=== PATIENT | female | born 2000 | race Caucasian/White ===

== ENCOUNTER 2019-08-30 11:28 | Emergency (ER) | payer SELFPAY ==
[2019-08-30] MEDS ORDERED: predniSONE 20 MG TAB ONE (12:00)
--- NOTE | 2019-08-30 12:56 | EDPHYS ---
Physician Documentation [facility] Name: Nan Stoddard Age: 18 yrs Sex: Female : 2000 Arrival Date: 08/30/2019 Time: 11:31 Bed 23 Private MD: Unknown, Unknown ED Physician Maninder Valero HPI: 08/30 16:29 This 18 yrs old Female presents to ER via Ambulatory with complaints of Neck kdr Swelling, Breathing Difficulty. 16:29 The patient or guardian reports difficulty breathing, Sore throat. Onset: The kdr symptoms/episode began/occurred gradually, 3 day(s) ago. Modifying factors: The symptoms are alleviated by nothing. the symptoms are aggravated by Solid and liquids. Associated signs and symptoms: Pertinent positives: sore throat, Lateral neck pain, this patient has no pertinent positive symptoms Pertinent negatives: chest pain, diarrhea, ear ache, fever, nausea. Severity of symptoms: At their worst the symptoms were mild in the emergency department the symptoms are unchanged. The patient has not experienced similar symptoms in the past. The patient has not recently seen a physician. Historical: - Allergies: 11:44 PENICILLINS; hb - Home Meds: 11:44 None [Active]; hb - PMHx: 11:44 None; hb - PSHx: 11:44 None; hb - Immunization history:: Adult Immunizations up to date. - Social history:: Smoking status: Patient uses tobacco products, smokes one-half pack cigarettes per day. - Ebola Screening: : No symptoms or risks identified at this time. ROS: 16:29 Constitutional: Negative for fever, chills, and weight loss, Eyes: Negative for injury, kdr pain, redness, and discharge, Neck: Negative for injury, pain, and swelling, Cardiovascular: Negative for chest pain, palpitations, and edema, Abdomen/GI: Negative for abdominal pain, nausea, vomiting, diarrhea, and constipation, Back: Negative for injury and pain, : Negative for injury, bleeding, discharge, and swelling, MS/Extremity: Negative for injury and deformity, Skin: Negative for injury, rash, and discoloration, Neuro: Negative for headache, weakness, numbness, tingling, and seizure activity. Psych: Negative for depression, anxiety, suicide ideation, homicidal ideation, and hallucinations, Allergy/Immunology: Negative for hives, rash, and allergies, Endocrine: Negative for neck swelling, polydipsia, polyuria, polyphagia, and marked weight changes, Hematologic/Lymphatic: Negative for swollen nodes, abnormal bleeding, and unusual bruising. 16:29 Neck: Positive for pain with movement, Neck s/s are very minimal. 16:29 Respiratory: Positive for Sore throat and lateral neck pain. Exam: 16:29 Constitutional: This is a well developed, well nourished patient who is awake, alert, kdr and in no acute distress. Head/Face: Normocephalic, atraumatic. Eyes: Pupils equal round and reactive to light, extra-ocular motions intact. Lids and lashes normal. Conjunctiva and sclera are non-icteric and not injected. Cornea within normal limits. Periorbital areas with no swelling, redness, or edema. ENT: Nares patent. No nasal discharge, no septal abnormalities noted. Tympanic membranes are normal and external auditory canals are clear. Oropharynx with no redness, swelling, or masses, exudates, or evidence of obstruction, uvula midline. Mucous membranes moist. Neck: Trachea midline, no thyromegaly or masses palpated, and no cervical lymphadenopathy. Supple, full range of motion without nuchal rigidity, or vertebral point tenderness. No Meningismus. Chest/axilla: Normal chest wall appearance and motion. Nontender with no deformity. No lesions are appreciated. Cardiovascular: Regular rate and rhythm with a normal S1 and S2. No gallops, murmurs, or rubs. Normal PMI, no JVD. No pulse deficits. Respiratory: Lungs have equal breath sounds bilaterally, clear to auscultation and percussion. No rales, rhonchi or wheezes noted. No increased work of breathing, no retractions or nasal flaring. Abdomen/GI: Soft, non-tender, with normal bowel sounds. No distension or tympany. No guarding or rebound. No evidence of tenderness throughout. Back: No spinal tenderness. No costovertebral tenderness. Full range of motion. Skin: Warm, dry with normal turgor. Normal color with no rashes, no lesions, and no evidence of cellulitis. MS/ Extremity: Pulses equal, no cyanosis. Neurovascular intact. Full, normal range of motion. Neuro: Awake and alert, GCS 15, oriented to person, place, time, and situation. Cranial nerves II-XII grossly intact. Motor strength 5/5 in all extremities. Sensory grossly intact. Cerebellar exam normal. Normal gait. Psych: Awake, alert, with orientation to person, place and time. Behavior, mood, and affect are within normal limits. Vital Signs: 11:43 BP 134 / 83; Pulse 114; Resp 16; Temp 98.9; Pulse Ox 100% on R/A; Weight 52.16 kg; hb Height 5 ft. 7 in. (170.18 cm); Pain 6/10; 12:36 BP 127 / 78; Pulse 89; Resp 16; Pulse Ox 98% on R/A; la1 11:43 Body Mass Index 18.01 (52.16 kg, 170.18 cm) hb MDM: 12:55 Patient medically screened. kdr 16:32 Data reviewed: vital signs, nurses notes, lab test result(s). Counseling: I had a kdr detailed discussion with the patient and/or guardian regarding: the historical points, exam findings, and any diagnostic results supporting the discharge/admit diagnosis, lab results, radiology results, the need for outpatient follow up. 08/30 11:59 Order name: Flu; Complete Time: 12:54 kdr 08/30 11:59 Order name: Strep; Complete Time: 12:54 kdr 08/30 12:24 Order name: Throat Culture EDMS Administered Medications: 12:06 Drug: predniSONE 40 mg Route: PO; la1 13:05 Follow up: Response: No adverse reaction la1 Disposition: 08/30/19 12:55 Discharged to Home. Impression: Acute pharyngitis due to other specified organisms, Acute pharyngitis, unspecified. - Condition is Stable. - Discharge Instructions: Pharyngitis, Sore Throat, Upper Respiratory Infection, Pediatric, Viral Respiratory Infection. - Prescriptions for Prednisone 20 mg Oral Tablet - take 2 tablets by ORAL route once daily for 3 days; 6 tablet. - Medication Reconciliation Form, Thank You Letter form. - Follow up: Private Physician; When: 2 - 3 days; Reason: If symptoms return, Further diagnostic work-up, Recheck today's complaints, Continuance of care, Re-evaluation by your physician. - Problem is new. - Symptoms have improved. Signatures: Dispatcher [employer] EDMS Maninder Valero MD MD kdr Viral Ely RN RN la1 Bea Gardner RN RN Corrections: (The following items were deleted from the chart) 13:05 12:55 08/30/2019 12:55 Discharged to Home. Impression: Acute pharyngitis due to other la1 specified organisms; Acute pharyngitis, unspecified. Condition is Stable. Forms are Medication Reconciliation Form, Thank You Letter, Antibiotic Education, Prescription Opioid Use. Follow up: Private Physician; When: 2 - 3 days; Reason: If symptoms return, Further diagnostic work-up, Recheck today's complaints, Continuance of care, Re-evaluation by your physician. Problem is new. Symptoms have improved. kdr
--- NOTE | 2019-08-30 12:56 | ER ---
Nurse's Notes [facility] Name: Nan Stoddard Age: 18 yrs Sex: Female : 2000 Arrival Date: 08/30/2019 Time: 11:31 Bed 23 Private MD: Unknown, Unknown Diagnosis: Acute pharyngitis due to other specified organisms;Acute pharyngitis, unspecified Presentation: 08/30 11:42 Presenting complaint: Sore throat x 2-3 days, neck stiffness and SOB today. Transition hb of care: patient was not received from another setting of care. Onset of symptoms was August 28, 2019. Risk Assessment: Do you want to hurt yourself or someone else? Patient reports no desire to harm self or others. Care prior to arrival: Medication(s) given: Motrin, at 1030. 11:42 Method Of Arrival: Ambulatory hb 11:42 Acuity: DARIEN 3 hb 11:48 Initial Sepsis Screen: Does the patient meet any 2 criteria? HR > 90 bpm. No. Patient's la1 initial sepsis screen is negative. Does the patient have a suspected source of infection? No. Patient's initial sepsis screen is negative. Historical: - Allergies: 11:44 PENICILLINS; hb - Home Meds: 11:44 None [Active]; hb - PMHx: 11:44 None; hb - PSHx: 11:44 None; hb - Immunization history:: Adult Immunizations up to date. - Social history:: Smoking status: Patient uses tobacco products, smokes one-half pack cigarettes per day. - Ebola Screening: : No symptoms or risks identified at this time. Screenin:52 Abuse screen: Denies threats or abuse. Nutritional screening: No deficits noted. la1 Tuberculosis screening: No symptoms or risk factors identified. Fall Risk None identified. Assessment: 11:51 General: Appears in no apparent distress. Behavior is calm, cooperative. Pain: la1 Complains of pain in sore throat. Neuro: Level of Consciousness is awake, alert, obeys commands, Oriented to person, place, time, situation. Cardiovascular: Capillary refill < 3 seconds Patient's skin is warm and dry. Respiratory: Airway is patent Respiratory effort is even, unlabored, Respiratory pattern is regular, symmetrical, Breath sounds are clear bilaterally. GI: No signs and/or symptoms were reported involving the gastrointestinal system. : No signs and/or symptoms were reported regarding the genitourinary system. EENT: Oral mucosa is moist. Good dentition noted. Throat is reddened has patchy exudate. Musculoskeletal: Circulation, motion, and sensation intact. Capillary refill < 3 seconds, Neck is supple. 12:36 Reassessment: Patient appears in no apparent distress at this time. No changes from la1 previously documented assessment. Patient and/or family updated on plan of care and expected duration. Pain level reassessed. Patient is alert, oriented x 3, equal unlabored respirations, skin warm/dry/pink. Vital Signs: 11:43 BP 134 / 83; Pulse 114; Resp 16; Temp 98.9; Pulse Ox 100% on R/A; Weight 52.16 kg; hb Height 5 ft. 7 in. (170.18 cm); Pain 6/10; 12:36 BP 127 / 78; Pulse 89; Resp 16; Pulse Ox 98% on R/A; la1 11:43 Body Mass Index 18.01 (52.16 kg, 170.18 cm) hb ED Course: 11:31 Patient arrived in ED. as 11:31 Unknown, Unknown is Private Physician. as 11:43 Triage completed. hb 11:43 Arm band placed on. hb 11:48 Viral Ely RN is Primary Nurse. la1 11:49 Maninder Valero MD is Attending Physician. kdr 11:52 Patient has correct armband on for positive identification. la1 13:04 No provider procedures requiring assistance completed. Patient did not have IV access la1 during this emergency room visit. Administered Medications: 12:06 Drug: predniSONE 40 mg Route: PO; la1 13:05 Follow up: Response: No adverse reaction la1 Outcome: 12:55 Discharge ordered by . kdr 13:05 Discharged to home ambulatory. la1 13:05 Condition: stable 13:05 Discharge instructions given to patient, Instructed on discharge instructions, follow up and referral plans. medication usage, Demonstrated understanding of instructions, follow-up care, medications, Prescriptions given X 1. 13:05 Patient left the ED. la1 Signatures: Maninder Valero MD MD kdr Cindy Strong as Viral Ely RN RN la1 Bea Gardner RN RN Corrections: (The following items were deleted from the chart) 11:44 11:42 Care prior to arrival: None. hb hb
[2019-08-30 13:13] VITALS: TEMP 98.9
[2019-08-30 13:14] VITALS: BP 127/78; O2SAT 98
== END 2019-08-30 13:05 | disposition home or self-care (01) ==
LOC: ER 11:28
DX: J02.8 Acute pharyngitis due to other specified organisms (principal); F17.210 Nicotine dependence, cigarettes, uncomplicated; Z88.0 Allergy status to penicillin
CPT/HCPCS: 87070; 87081; 87804; 99283; J7512

== ENCOUNTER 2023-04-09 07:48 | Emergency (ER) | payer SELFPAY ==
--- OUTSIDE RECORDS SUMMARY | 2023-04-09 07:51 | XMS REPORT | Continuity of Care Document ---
:2000 Author Organization [facility] t Address [address] [place] [address] [place] [id number] Care Team Providers Name Role Phone PCP, PATIENT DOES NOT HAVE A Primary Care Physician Unavaila mp Segal BIT SHAVER, Jignesh Attending Clinician JIGNESH SEGAL Attending Clinician Unavailable Doctor Unassigned, Anselmo Attending Clinician Unavailable Problems Condition Condition Condition Status Onset Resolution Last Treating Co mments Source Name Details Category Date Date Treatment Clinician Date Routine Routine Disease Active [facility] gynecologi gynecologi 816 it y of [place] valentino 00:00: [place] examinatio examinatio 00 Me dical n n Branch Cervical Cervical Disease Active Unive rs cancer cancer 816 ity of [place] [facility] Incomplete Incomplete Disease Active U nivers rectal rectal 16 ity of prolapse prolapse 00:00: [place] 00 [facility] Need for Need for Disease Active Unive rs vaccinatio vaccinatio 16 it y of n n 00:00: [address] Branch History of History of Disease Active U nivers chronic chronic 8-16 [place] [facility] Allergies, Adverse Reactions, Alerts Allergy Allergy Status Severity Reaction(s) Onset Inactive Treating Comm ents Source Name Type Date Date Clinician NO KNOWN Drug Active Univers ALLERGIE Class ity of S [facility] Social History Social Habit Start Date Stop Date Quantity Comments Source Exposure to 2022-06-13 2022-06-23 Not sure [facility] SARS-CoV-2 00:00:00 09:43:00 [facility] (event) [place] Tobacco use and 2022-06-23 2022-06-23 Smokeless tobacco Un iversity of exposure 00:00:00 00:00:00 non-user [facility] Sex Assigned At [birth year] Universit y of 00:00:00 00:00:00 [facility] Smoking Status Start Date Stop Date Source Never smoked tobacco [facility] Medications Ordered Filled Start Stop Current Ordering Indication Dosage Frequency Signature Comments Components Source Medication Medication Date Date Medication? Clinician (SIG) Name Name No known No No known Unive rs medications 8-16 medication it y of 11:00: s [address] Vital Signs Vital Name Observation Time Observation Value Comments Source Systolic blood 2022-06-23 14:56:00 121 mm[Hg] Univer sity of pressure [facility] Diastolic blood 2022-06-23 14:56:00 86 mm[Hg] Unive rsity of pressure [facility] Heart rate 2022-06-23 14:56:00 87 /min [facility] Respiratory rate 2022-06-23 14:56:00 18 /min [facility] Body height 2022-06-23 14:56:00 170.2 cm [facility] Body weight 2022-06-23 14:56:00 60.782 kg [facility] BMI 2022-06-23 14:56:00 20.99 kg/m2 [facility] Oxygen saturation in 2022-06-23 14:56:00 100 /min [facility] Arterial blood by [facility] Pulse oximetry Branch Procedures This patient has no known procedures. Encounters Start End Encounter Admission Attending Care Care Encounter Source Date/Time Date/Time Type Type Clinicians Facility Department ID 2022-06-23 2022-06-23 Office ALMAS Segal [id number] [facility] 09:30:00 10:34:49 Visit Jignesh ALEK [id number] it y of WOMEN'S [id number] [facility] [employer] [id number] [facility] CLIN[facility] [address] Branch 2022-06-23 2022-06-23 Outpatient R JIGNESH SEGAL [facility] [id number] Univers 09:30:00 10:34:49 EMILYJIGNESH SINHA [facility] 2022-06-23 2022-06-23 Outpatient R JIGNESH SEGAL [facility] [id number] [facility] 09:30:00 10:34:49 NOÉJIGNESH HERRERA akilah [facility] 2022-06-23 2022-06-23 Outpatient R JIGNESH SEGAL [facility] [id number] [facility] 09:30:00 10:34:49 EMILYJIGNESH SINHA [facility] 2022-06-23 2022-06-23 Orders Doctor BRYON [id number] Univers 00:00:00 00:00:00 Only Unassigned, JOSSIE [id number] ity of [place]selmo [facility] [id number] Zay as [id number] [place] [address] Branch Results This patient has no known results.
[2023-04-09 08:40] LABS: Absolute Lymphocytes (CBC) 2.1 K/uL (0.7-4.9); Hematocrit 41.7 % (36.0-45.0); Lymphocytes % 23.4 % (15.3-44.8); MCV 90.8 fL (80-100); MPV 10.7 fL (7.6-11.3); RBC Red Blood Cell Count 4.59 M/uL (3.86-4.86)
[2023-04-09 08:56] LABS: Potassium 3.9 mEq/L (3.5-5.1)
--- NOTE | 2023-04-09 10:17 | RAD REPORT ---
EXAM DESCRIPTION: US - Transvaginal OB - 04/09/2023 10:03 am CLINICAL HISTORY: with vaginal bleeding COMPARISON: None. FINDINGS: The uterus measures 7 x 3 x 5 centimeters. The endometrial stripe measures 4 millimeters. A gestational sac is not seen. Ovaries are normal in size and echotexture.. 3.1 centimeter with cyst containing a septation is prese nt within the left adnexal. The right at adnexa unremarkable No significant free fluid IMPRESSION: Nonvisualization of a gestational sac within the endometrium. These findings could represent an early intrauterine in which the gestational sac is not se en. and even an ectopic can also result in this appearance. This all should be cor related clinically and with serial beta HCG levels. Followup endovaginal sonogram in 1 week recommend ed 3.1 centimeter left adnexal cyst containing a septation
[2023-04-09 10:26] LABS: Specific Gravity 1.008 (1.005-1.030)
[2023-04-09 10:31] LABS: Specific Gravity 1.008 (1.005-1.030); Urine Bacteria None Seen /HPF (<20); Urine Bilirubin NEGATIVE (Negative); Urine Blood 2+ (Negative); Urine Clarity Clear (Clear); Urine Color Colorless (Yellow); Urine Glucose NEGATIVE (Negative); Urine Mucus Slight /HPF (None Seen); Urine Protein NEGATIVE (Negative); Urine RBC <5 /HPF (None Seen); Urine Urobilinogen Normal (Normal); Urine pH 5.5 (5.0-7.0)
--- NOTE | 2023-04-09 10:39 | ER ---
Nurse's Notes [facility] Name: Nan Stoddard Age: 22 yrs Sex: Female : 2000 Arrival Date: 04/09/2023 Time: 07:48 Bed 14 Private MD: Diagnosis: Threatened Presentation: 04/09 07:59 Chief complaint: Bright red vaginal bleeding upon waking today, reports she is approx 5 hb weeks , has not seen OB yet. Coronavirus screen: At this time, the client does not indicate any symptoms associated with coronavirus-19. Ebola Screen: No symptoms or risks identified at this time. Initial Sepsis Screen: Does the patient meet any 2 criteria? No. Patient's initial sepsis screen is negative. Does the patient have a suspected source of infection? No. Patient's initial sepsis screen is negative. Risk Assessment: Do you want to hurt yourself or someone else? Patient reports no desire to harm self or others. Onset of symptoms was April 09, 2023. 07:59 Method Of Arrival: Ambulatory hb 07:59 Acuity: DARIEN 3 hb CLAIMS EXAMINER: 09:19 LMP 03/05/2023 nj1 Historical: - Allergies: 08:01 PENICILLINS; hb - Home Meds: 08:01 None [Active]; hb - PMHx: 08:01 Hypertensive disorder; hb - PSHx: 08:01 None; hb - Immunization history:: Adult Immunizations up to date. - Social history:: Smoking status: Patient/guardian denies using tobacco, Stopped _ months ago 1. Screenin:16 [facility] ED Fall Risk Assessment (Adult) History of falling in the last 3 months, ss including since admission No falls in past 3 months (0 pts). Abuse screen: Denies threats or abuse. Denies injuries from another. Nutritional screening: No deficits noted. Tuberculosis screening: Never had TB. Assessment: 08:03 General: Appears in no apparent distress. comfortable, Behavior is calm, cooperative. ss Pain: Complains of pain in abdomen Pain currently is 5 out of 10 on a pain scale. Quality of pain is described as crampy, Pain began this morning Is continuous. Neuro: Level of Consciousness is awake, alert. Respiratory: Airway is patent Respiratory effort is even, unlabored, Respiratory pattern is regular, symmetrical. GI:. : Reports vaginal bleeding that is moderate flow. Derm: Skin is pink, warm \T\ dry. normal. Musculoskeletal: Swelling absent. 08:13 Reassessment: Pt ambulated to restroom with steady gait to provide urine specimen. ss 08:29 Reassessment: Pt unable to provide urine sample at this time. Call light within reach. ss IV in place. Labs sent to laboratory, awaiting results. 09:10 Reassessment: Reassessment: Tiana CASTANON aware of blood pressure readings per preceding nj1 nurse report (Caty Dennis RN). 10:10 Reassessment: Patient appears in no apparent distress at this time. Patient and/or nj1 family updated on plan of care and expected duration. Pain level reassessed. Patient is alert, oriented x 3, equal unlabored respirations, skin warm/dry/pink. 10:47 Reassessment: Patient appears in no apparent distress at this time. Patient is alert, nj1 oriented x 3, equal unlabored respirations, skin warm/dry/pink. Vital Signs: 07:59 BP 146 / 111; Pulse 75; Resp 16; Temp 98.7(O); Pulse Ox 100% on R/A; Weight 53.07 kg; hb Height 5 ft. 7 in. ; Pain 5/10; 10:10 BP 126 / 87; Pulse 68; Resp 16; Pulse Ox 100% on R/A; nj1 07:59 Body Mass Index 18.32 (53.07 kg, 170.18 cm) hb 07:59 Pain Scale: Adult hb ED Course: 07:50 Patient arrived in ED. rg4 08:01 Triage completed. hb 08:01 Robert Urbina PA is PHCP. [facility] 08:01 Juan Viera MD is Attending Physician. jm 08:01 Arm band placed on. hb 08:03 Patient has correct armband on for positive identification. ss 08:13 Caty Brar, IMMANUEL is Primary Nurse. ss 08:29 Abo/rh Typing Sent. ss 08:29 Basic Metabolic Panel Sent. ss 08:29 CBC with Diff Sent. ss 08:29 Inserted saline lock: 22 gauge in right antecubital area, using aseptic technique. ss Blood collected. 09:00 Report given to IMMANUEL Wallace. ss 10:47 No provider procedures requiring assistance completed. IV discontinued, intact, nj1 bleeding controlled. Administered Medications: No medications were administered Medication: 08:03 VIS not applicable for this client. Outcome: 10:39 Discharge ordered by . cande 10:48 Discharged to home ambulatory. nj1 10:48 Condition: stable 10:48 Discharge instructions given to patient, Instructed on discharge instructions, follow up and referral plans. Demonstrated understanding of instructions, follow-up care. 10:49 Patient left the ED. nj1 Signatures: Dispatcher [employer] EDMS Robert Urbina PA PA jmm Smirch, Shelby, RN RN Bea Gardner RN RN hb Garcia, Rubi rg4 Madison Dowling RN RN nj1 Corrections: (The following items were deleted from the chart) 09:18 09:14 BP 131 / 111; Pulse 47bpm; Pulse Ox 100% RA; nj1 nj1 10:03 10:02 In radiology for 1st Trimest Single 1st Fetus+US.RAD.BRZ. EDMS EDMS
--- NOTE | 2023-04-09 10:40 | EDPHYS ---
Physician Documentation [facility] Name: Nan Stoddard Age: 22 yrs Sex: Female : 2000 Arrival Date: 04/09/2023 Time: 07:48 Bed 14 Private MD: ED Physician Juan Viera HPI: 04/09 08:02 This 22 yrs old Female presents to ER via Ambulatory with complaints of Vaginal jmm Bleeding, + Preg <12wks. 08:02 Is a 22-year-old female with history of hypertension the presents emerged department jm with complaints of vaginal bleeding beginning earlier today. Also having some pelvic cramping. Patient is G1, P0. Currently has no care.. 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 - Social history:: Smoking status: Patient/guardian denies using tobacco, Stopped _ months ago 1. ROS: 08:02 Constitutional: Negative for fever, chills, and weight loss, Cardiovascular: Negative jmm for chest pain, palpitations, and edema, Respiratory: Negative for shortness of breath, cough, wheezing, and pleuritic chest pain. 08:02 : Positive for vaginal bleeding. 08:02 All other systems are negative. Exam: 08:02 Constitutional: This is a well developed, well nourished patient who is awake, alert, jmm and in no acute distress. Head/Face: atraumatic. Eyes: EOMI, no conjunctival erythema appreciated ENT: Moist Mucus Membranes Neck: Trachea midline, Supple Chest/axilla: Normal chest wall appearance and motion. Cardiovascular: Regular rate and rhythm. No edema appreciated Respiratory: Normal respirations, no respiratory distress appreciated Abdomen/GI: Non distended Back: Normal ROM Skin: General appearance color normal 08:02 Musculoskeletal/extremity: ROM: intact in all extremities. 08:02 Skin: Appearance: Color: normal in color. 08:02 Neuro: Orientation: is normal, Mentation: is normal, Memory: is normal. 08:02 Psych: Behavior/mood is pleasant, cooperative. Vital Signs: 07:59 BP 146 / 111; Pulse 75; Resp 16; Temp 98.7(O); Pulse Ox 100% on R/A; Weight 53.07 kg; hb Height 5 ft. 7 in. ; Pain 5/10; 10:10 BP 126 / 87; Pulse 68; Resp 16; Pulse Ox 100% on R/A; nj1 07:59 Body Mass Index 18.32 (53.07 kg, 170.18 cm) hb 07:59 Pain Scale: Adult hb MDM: 08:02 Patient medically screened. [facility] 12:33 Differential diagnosis: Threatened , complete , dysfunctional uterine [facility] bleeding. Data reviewed: vital signs, nurses notes, lab test result(s), radiologic studies, ultrasound. Counseling: I had a detailed discussion with the patient and/or guardian regarding: the historical points, exam findings, and any diagnostic results supporting the discharge/admit diagnosis, lab results, radiology results, the need for outpatient follow up, to return to the emergency department if symptoms worsen or persist or if there are any questions or concerns that arise at home. 04/09 08:02 Order name: Abo/rh Typing; Complete Time: 09:00 [facility] 04/09 08:02 Order name: Basic Metabolic Panel; Complete Time: 08:57 [facility] 04/09 08:02 Order name: CBC with Diff; Complete Time: 08:46 [facility] 04/09 08:02 Order name: Test, Urine; Complete Time: 10:33 [facility] 04/09 08:02 Order name: Quantitative Hcg; Complete Time: 08:57 [facility] 04/09 08:02 Order name: Urinalysis w/ reflexes; Complete Time: 10:33 [facility] 04/09 10:05 Order name: Transvaginal OB; Complete Time: 10:27 [facility] 04/09 08:02 Order name: IV Saline Lock; Complete Time: 08:28 [facility] 04/09 08:02 Order name: Labs collected and sent; Complete Time: 08:28 [facility] 04/09 08:02 Order name: NPO; Complete Time: 08:28 [facility] Administered Medications: No medications were administered Disposition: 13:56 Co-signature as Attending Physician, Juan Viera MD I reviewed the patient's care rt provided by the Advanced Practice Provider and agree with the diagnosis and treatment plan. Disposition Summary: 04/09/23 10:39 Discharge Ordered Location: Home [facility] Condition: Stable jm Diagnosis - Threatened jm Followup: jmza - With: Private Physician - When: 2 - 3 days - Reason: Recheck today's complaints, Continuance of care, Repeat Beta-HCG (48 Hours), Re-evaluation by your physician Discharge Instructions: - Discharge Summary Sheet jmm - Threatened Miscarriage jm Forms: - Medication Reconciliation Form [facility] - Thank You Letter [facility] - Antibiotic Education [facility] - Prescription Opioid Use [facility] Signatures: Dispatcher [employer] EDMS Robert Urbina PA PA jmm Baxter, Heather, RN RN Juan Viera MD MD rt Corrections: (The following items were deleted from the chart) 10:03 09:00 1st Trimest Single 1st Fetus+US.RAD.BRZ ordered. EDMS EDMS
[2023-04-09 11:13] VITALS: TEMP 98.7; O2SAT 100
[2023-04-09 11:19] VITALS: BP 126/87
== END 2023-04-09 10:49 | disposition home or self-care (01) ==
LOC: ER 07:48
DX: O20.0 Threatened abortion (principal)
CPT/HCPCS: 36415; 76817; 80048; 81001; 81025; 84702; 85025; 86900; 86901; 99283

== ENCOUNTER 2023-04-11 09:01 | Emergency (ER) | payer SELFPAY ==
--- OUTSIDE RECORDS SUMMARY | 2023-04-11 09:06 | XMS REPORT | Continuity of Care Document ---
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, Jignesh Attending Clinician JIGNESH SEGAL Attending Clinician Unavailable Doctor Unassigned, [place] Attending Clinician Unavailable Problems Condition Condition Condition Status Onset Resolution Last Treating Co mments Source Name Details Category Date Date Treatment Clinician Date Routine Routine Disease Active Univers gynecologi gynecologi 816 it y of valentino valentino 00:00: [place] examinatio examinatio 00 Me dical n n Branch Cervical Cervical Disease Active Unive rs cancer cancer 816 ity of [place] [facility] [place] Incomplete Incomplete Disease Active U nivers rectal rectal 16 ity of prolapse prolapse 00:00: [place] 00 Medical Branch Need for Need for Disease Active Unive rs vaccinatio vaccinatio 16 it y of n n 00:00: [address] Branch History of History of Disease Active U nivers chronic chronic 8-16 [place] of const[place] Allergies, Adverse Reactions, Alerts Allergy Allergy Status Severity Reaction(s) Onset Inactive Treating Comm ents Source Name Type Date Date Clinician NO KNOWN Drug Active Univers ALLERGIE Class ity of S [facility] Social History Social Habit Start Date Stop Date Quantity Comments Source Exposure to 2022-06-13 2022-06-23 Not sure [facility] SARS-CoV-2 00:00:00 09:43:00 [facility] (event) [place] Tobacco use and 2022-06-23 2022-06-23 Smokeless tobacco Un iversity of exposure 00:00:00 00:00:00 non-user [facility] Sex Assigned At [birth year] Universit y of 00:00:00 00:00:00 [facility] Smoking Status Start Date Stop Date Source Never smoked tobacco [facility] Medications Ordered Filled Start Stop Current Ordering Indication Dosage Frequency Signature Comments Components Source Medication Medication Date Date Medication? Clinician (SIG) Name Name No known No No known Unive rs medications 8-16 medication it y of 11:00: s [address] Vital Signs Vital Name Observation Time Observation Value Comments Source Systolic blood 2022-06-23 14:56:00 121 mm[Hg] Univer sity of pressure [facility] Diastolic blood 2022-06-23 14:56:00 86 mm[Hg] Unive rsity of pressure [facility] Heart rate 2022-06-23 14:56:00 87 /min [facility] Respiratory rate 2022-06-23 14:56:00 18 /min [facility] height 2022-06-23 14:56:00 170.2 cm [facility] Body weight 2022-06-23 14:56:00 60.782 kg [facility] BMI 2022-06-23 14:56:00 20.99 kg/m2 [facility] Oxygen saturation in 2022-06-23 14:56:00 100 /min [facility] Arterial blood by [facility] Pulse oximetry Branch Procedures This patient has no known procedures. Encounters Start End Encounter Admission Attending Care Care Encounter Source Date/Time Date/Time Type Type Clinicians Facility Department ID 2022-06-23 2022-06-23 Office ALMAS Segal [id number] [facility] 09:30:00 10:34:49 Visit Jignesh ALEK [id number] it y of WOMEN'S [id number] [facility] mascotsecret [id number] [facility] CLINIC [address] Branch 2022-06-23 2022-06-23 Outpatient R JIGNESH SEGAL [facility] [id number] Univers 09:30:00 10:34:[address] [facility] 2022-06-23 2022-06-23 Outpatient R JIGNESH SEGAL [facility] [id number] [facility] 09:30:00 10:34:49 NOÉJIGNESH HERRERA akilah [facility] 2022-06-23 2022-06-23 Outpatient R JIGNESH SEGAL [facility] [id number] [facility] 09:30:00 10:34:[address] [facility] 2022-06-23 2022-06-23 Orders Doctor BRYON [id number] Univers 00:00:00 00:00:00 Only Unassigned, JOSSIE [id number] ity of [place] [facility] [id number] Zay as [phone] [place] [address] Branch Results This patient has no known results.
--- NOTE | 2023-04-11 10:36 | EDPHYS ---
Physician Documentation [facility] Name: Nan Stoddard Age: 22 yrs Sex: Female : 2000 Arrival Date: 04/11/2023 Time: 09:01 Bed 15 Private MD: ED Physician Abisai Liriano HPI: 04/11 09:16 This 22 yrs old Female presents to ER via Unassigned with complaints of bs3 Vaginal Bleeding, + Preg <12wks. 09:16 Patient notes that she was seen here 2 days ago for vaginal bleeding had an hCG of 10 bs3 and returns for repeat she notes that the bleeding seems to have resolved and she has not associated pain denies anything else bothering her she thinks she was approximately 5 weeks . 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 - Social history:: Smoking status: Patient reports the use of cigarette tobacco products, smokes one-half pack cigarettes per day. ROS: 09:16 Constitutional: Negative for fever, chills bs3 09:16 All other systems are negative. Exam: 09:16 Constitutional: This is a well developed, well nourished patient who is awake, alert, bs3 and in no acute distress. Head/Face: Normocephalic, atraumatic. Eyes: Pupils equal round and reactive to light, extra-ocular motions intact. Lids and lashes normal. ENT: mmm, no posterior phyarngeal erythema Abdomen/GI: Soft, non-tender, no rebound or guarding MS/ Extremity: Pulses equal, no cyanosis. Neurovascular intact. Full, normal range of motion. Neuro: Awake and alert, GCS 15, oriented to person, place, time, and situation. Cranial nerves II-XII grossly intact. Motor strength 5/5 in all extremities. Sensory grossly intact. Psych: Awake, alert, with orientation to person, place and time. Behavior, mood, and affect are within normal limits. Vital Signs: 09:15 BP 136 / 99; Pulse 87; Resp 16; Temp 98.1(TE); Pulse Ox 100% ; Weight 53.07 kg; Height vg1 5 ft. 7 in. ; 10:44 BP 133 / 90; Pulse 82; Resp 18; Pulse Ox 99% on R/A; kr3 09:15 Body Mass Index 18.32 (53.07 kg, 170.18 cm) vg1 MDM: 09:03 Patient medically screened. bs3 09:16 Differential diagnosis: Patient with IUP versus ectopic versus miscarriage hCG was bs3 extremely low likely miscarriage we will repeat hCG today Rh status is positive. Data reviewed: vital signs, nurses notes. 10:33 ED course: ECG less than 10 trending down consistent with miscarriage advised pelvic bs3 rest follow-up with CONTRACTOR BROOMCORN THRESHING to be cleared. 04/11 09:04 Order name: HCG-Quantitative; Complete Time: 10:16 bs3 Administered Medications: No medications were administered Disposition Summary: 04/11/23 10:35 Discharge Ordered Location: Home bs3 Problem: new bs3 Symptoms: have improved bs3 Condition: Stable bs3 Diagnosis - Complete or unspecified spontaneous without complication bs3 Followup: bs3 - With: Private Physician - When: 1 week - Reason: Re-evaluation by your physician Discharge Instructions: - Discharge Summary Sheet bs3 - Miscarriage bs3 Forms: - Medication Reconciliation Form bs3 - Thank You Letter bs3 - Antibiotic Education bs3 - Prescription Opioid Use bs3 Signatures: Dispatcher [employer] Sheela Sherman, IMMANUEL RN vg1 Abisai Liriano MD MD bs3
--- NOTE | 2023-04-11 10:36 | ER ---
Nurse's Notes [facility] Name: Nan Stoddard Age: 22 yrs Sex: Female : 2000 Arrival Date: 04/11/2023 Time: 09:01 Bed 15 Private MD: Diagnosis: Complete or unspecified spontaneous without complication Presentation: 04/11 09:15 Chief complaint: Patient states: was seen in ED a couple of days ago; approximately 5.5 vg1 weeks , bleeding began Wednesday with bright red blood, next day was dark red with clots, states ABD cramping. Revisit to check HCG levels. Coronavirus screen: Vaccine status: Patient reports being unvaccinated. Client denies travel out of the [place] in the last 14 days. Ebola Screen: Patient negative for fever greater than or equal to 101.5 degrees Fahrenheit, and additional compatible Ebola Virus Disease symptoms Patient denies exposure to infectious person. Patient denies travel to an Ebola-affected area in the 21 days before illness onset. Initial Sepsis Screen: Does the patient meet any 2 criteria? No. Patient's initial sepsis screen is negative. Does the patient have a suspected source of infection? No. Patient's initial sepsis screen is negative. Risk Assessment: Do you want to hurt yourself or someone else? Patient reports no desire to harm self or others. Onset of symptoms was April 09, 2023. 09:15 Method Of Arrival: Ambulatory vg1 09:15 Acuity: DARIEN 4 vg1 Triage Assessment: 09:18 General: Appears in no apparent distress. comfortable, Behavior is cooperative. Pain: vg1 Complains of pain in right lower quadrant and left lower quadrant Quality of pain is described as crampy. : Reports vaginal bleeding that is with clots. 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 - Social history:: Smoking status: Patient reports the use of cigarette tobacco products, smokes one-half pack cigarettes per day. Screenin:[address] [facility] ED Fall Risk Assessment (Adult) History of falling in the last 3 months, vg1 including since admission No falls in past 3 months (0 pts). Abuse screen: Denies threats or abuse. Denies injuries from another. Nutritional screening: No deficits noted. Tuberculosis screening: No symptoms or risk factors identified. Assessment: 10:02 Obstetrical Assessment: General assessment: awake and alert, skin warm and dry. kr3 General: Appears in no apparent distress. comfortable, Behavior is calm, cooperative, appropriate for age. Pain: Denies pain. Neuro: Level of Consciousness is awake, alert, obeys commands, Oriented to person, place, time, situation. Cardiovascular: Patient's skin is warm and dry. Respiratory: Airway is patent Respiratory effort is even, unlabored, Respiratory pattern is regular, symmetrical. GI: No signs and/or symptoms were reported involving the gastrointestinal system. : Reports vaginal bleeding that is. EENT: No signs and/or symptoms were reported regarding the EENT system. Derm: No signs and/or symptoms reported regarding the dermatologic system. Musculoskeletal: No signs and/or symptoms reported regarding the musculoskeletal system. Vital Signs: 09:15 BP 136 / 99; Pulse 87; Resp 16; Temp 98.1(TE); Pulse Ox 100% ; Weight 53.07 kg; Height vg1 5 ft. 7 in. ; 10:44 BP 133 / 90; Pulse 82; Resp 18; Pulse Ox 99% on R/A; kr3 09:15 Body Mass Index 18.32 (53.07 kg, 170.18 cm) vg1 ED Course: 09:03 Patient arrived in ED. rg4 09:03 Abisai Liriano MD is Attending Physician. bs3 09:18 Triage completed. vg1 09:18 Arm band placed on. vg1 09:18 Call light in reach. Side rails up X 1. kr3 09:19 No provider procedures requiring assistance completed. vg1 09:27 Initial lab(s) drawn, by pa, sent to lab. tm3 10:01 Lynn Ellison, IMMANUEL is Primary Nurse. kr3 10:45 Patient did not have IV access during this emergency room visit. kr3 Administered Medications: No medications were administered Medication: 09:20 VIS not applicable for this client. vg1 Outcome: 10:35 Discharge ordered by . bs3 10:45 Discharged to home ambulatory. kr3 10:45 Condition: stable 10:45 Discharge instructions given to patient, Instructed on discharge instructions, follow up and referral plans. Demonstrated understanding of instructions, follow-up care. 10:45 Patient left the ED. kr3 Signatures: Eduard Bautista tm3 Essence Hughes rg4 Sheela Hughes RN RN vg1 Lynn Ellison RN RN kr3 Abisai Liriano MD MD bs3
[2023-04-11 10:51] VITALS: TEMP 98.1
[2023-04-11 10:52] VITALS: BP 133/90; O2SAT 99
== END 2023-04-11 10:45 | disposition home or self-care (01) ==
LOC: ER 09:01
DX: O03.9 Complete or unspecified spontaneous abortion without complication (principal)
CPT/HCPCS: 36415; 84702; 99283

== ENCOUNTER 2023-10-18 07:00 | Emergency (ER) | payer SELFPAY ==
--- OUTSIDE RECORDS SUMMARY | 2023-10-18 07:03 | XMS REPORT | Continuity of Care Document ---
Author Name Unknown Address [address] [facility] [address] [place] [address] [facility] thconnect Address [address] 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, Jignesh Attending Clinician JIGNESH SEGAL Attending Clinician Unavaila mp Doctor Unassigned, [place] Attending Clinician U navailable [email or web address] Admitting Clinician Unavaila ble Problems Condition Name Condition Details Condition Category Status Onset Date Resolution Date Last Treatment Date Treating Clinician Comments Source Routine gynecologi valentino examinatio n Routine gynecologi valentino examinatio n Disease Active 06-23 00:00: 00 [facility] Cervical cancer screening Cervical cancer screening Disease Active 06-23 00:00: 00 [facility] Incomplete rectal prolapse Incomplete rectal prolapse Disease Active 06-23 00:00: 00 [facility] Need for vaccinatio n Need for vaccinatio n Disease Active 06-23 00:00: 00 [facility] History of chronic constipati on History of chronic constipati on Disease Active 06-23 00:00: 00 [facility] Allergies, Adverse Reactions, Alerts Allergy Name Allergy Type Status Severity Reaction(s) Onset Date Inactive Date Treating Clinician Comments Source NO KNOWN ALLERGIE S Drug Class Active [facility] Social History Social Habit Start Date Stop Date Quantity Comments Source Exposure to SARS-CoV-2 (event) 2022-06-13 00:00:00 2022-06-23 09:43:00 Not sure [facility] Tobacco use and exposure 2022-06-23 00:00:00 2022-06-23 00:00:00 Smokeless tobacco non-user [facility] Sex Assigned At 2000 00:00:00 2000 00:00:00 [facility] Smoking Status Start Date Stop Date Source Never smoked tobacco [facility] Medications Ordered Medication Name Filled Medication Name Start Date Stop Date Current Medication? Ordering Clinician Indication Dosage Frequency Signature (SIG) Comments Components Source No known medications 06-23 11:00: 39 No No known medication s [facility] Vital Signs Vital Name Observation Time Observation Value Comments S [facility] Systolic blood pressure 2022-06-23 14:56:00 121 mm[Hg] [facility] Diastolic blood pressure 2022-06-23 14:56:00 86 mm[Hg] [facility] Heart rate 2022-06-23 14:56:00 87 /min [facility] Respiratory rate 2022-06-23 14:56:00 18 /min [facility] Body height 2022-06-23 14:56:00 170.2 cm [facility] Body weight 2022-06-23 14:56:00 60.782 kg [facility] BMI 2022-06-23 14:56:00 20.99 kg/m2 [facility] Oxygen saturation in Arterial blood by Pulse oximetry 2022-06-23 14:56:00 100 /min [facility] Encounters Start Date/Time End Date/Time Encounter Type Admission Type Attending Clinicians Care Facility Care Department Encounter ID Source 2023-09-23 14:53:48 2023-09-23 14:53:48 Outpatient [facility] [id number] Nitish Kim Clark 2023-09-21 11:19:59 2023-09-21 11:19:59 Outpatient [facility] [id number] Nitish Rodas 2023-09-07 00:00:00 2023-09-07 00:00:00 Outpatient [email or web address] [facility] [id number] [facility] 2023-08-24 15:24:20 2023-08-24 15:24:20 Outpatient [facility] [id number] Nitish Kim Clark 2023-08-23 12:11:17 2023-08-23 12:11:17 Outpatient [facility] [id number] Nitish Rodas 2023-08-11 15:41:27 2023-08-11 15:41:27 Outpatient [facility] [id number] Nitish Kim Clark 2023-08-04 14:30:00 2023-08-04 14:30:00 Outpatient R MIRIAN RODRIGUEZ [facility] [id number] [facility] 2022-06-23 09:30:00 2022-06-23 10:34:49 Office Visit Jignesh Segal [facility] 1..[id number] [facility] 2022-06-23 09:30:00 2022-06-23 10:34:49 Outpatient R JIGNESH SEGAL CHERYAL [facility] [id number] [facility] 2022-06-23 09:30:00 2022-06-23 10:34:49 Outpatient R JIGNESH SEGAL CHERYAL [facility] [id number] [facility] 2022-06-23 09:30:00 2022-06-23 10:34:49 Outpatient R JIGNESH SEGAL CHERYAL [facility] [id number] [facility] 2022-06-23 00:00:00 2022-06-23 00:00:00 Orders Only Doctor Unassigned, [place] [facility] 1..[id number] [facility]
[2023-10-18 07:52] LABS: Absolute Lymphocytes (CBC) 0.3 K/uL (0.7-4.9); Hematocrit 34.9 % (36.0-45.0); Lymphocytes % 2.7 % (15.3-44.8); MCV 89.6 fL (80-100); MPV 9.5 fL (7.6-11.3); Platelets 185 thou/uL (152-406)
[2023-10-18] MEDS ORDERED: D5 0.9 NS 1,000 ML IV ONE (08:01)
[2023-10-18 08:12] LABS: Albumin 3.1 g/dL (3.4-5.0); Bilirubin Total 0.4 mg/dL (0.2-1.0); Potassium 3.4 mEq/L (3.5-5.1)
[2023-10-18 08:26] LABS: White Blood Cell Scan OK (OK)
[2023-10-18 08:27] LABS: Blood Morphology Comment NOT SEEN (NOT SEEN); Platelet Estimate ADEQ
--- NOTE | 2023-10-18 09:00 | RAD REPORT ---
EXAM DESCRIPTION: US - OB Limited - 10/18/2023 7:59 am CLINICAL HISTORY: ABD PAIN COMPARISON: Transvaginal OB dated 04/09/2023 TECHNIQUE: Sonographic grayscale and color flow images of a second -trimester were obtaine d through transabdominal approach. FINDINGS: A single live intrauterine is identified. Femur length measures 27.6 mm, corresponding to gestational age of 18 weeks, 3 days. anatomy wa s not fully evaluated. presentation is variable. Placenta was formed anteriorly. Subjectively normal volume of amnioti c fluid noted. heart rate: 155 BPM. Cervical canal as opposed proximally. Trace fluid versus nabothian cyst distally. Maternal ovaries are not well-visualized. No free fluid. IMPRESSION: 1. Single live intrauterine as above. 2. Calculated gestational age: 18 weeks, 3 days. Estimated due date by ultrasound: 03/17/2024.
[2023-10-18 10:09] LABS: Specific Gravity 1.028 (1.005-1.030); Urine Bacteria None Seen /HPF (<20); Urine Bilirubin NEGATIVE (Negative); Urine Blood Negative (Negative); Urine Clarity Clear (Clear); Urine Color Colorless (Yellow); Urine Glucose 4+ (Over) (Negative); Urine Mucus Slight /HPF (None Seen); Urine Protein NEGATIVE (Negative); Urine RBC None Seen /HPF (None Seen); Urine Urobilinogen Normal (Normal)
[2023-10-18] MEDS ORDERED: ONDANSETRON 4 MG/2 ML VIAL ONE ×2 (10:10→10:27)
--- NOTE | 2023-10-18 10:22 | EDPHYS ---
Physician Documentation [facility] Name: Nan Stoddard Age: 23 yrs Sex: Female : 2000 Arrival Date: 10/18/2023 Time: 07:00 Bed 4 Private MD: ED Physician Quinton Suresh HPI: 10/18 07:31 This 23 yrs old Female presents to ER via Ambulatory with complaints of 18 Weeks ms3 , Vomiting. 07:33 23-year-old female with past medical history of hypertension presents to the emergency az3 department for vomiting that began at 10:30 PM last night. Patient states she does have some back/stomach cramping that she rates as mild. Patient states her discomfort is rated a 9/10 as she does not feel well. Patient notes her last menstrual period to be 05/14/2023 and states she is a -0-1-0. Patient denies alleviating factors. Patient states drinking water makes her symptoms worse.. 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 - Social history:: Smoking status: Patient denies any tobacco usage or history of. ROS: 07:33 Constitutional: Negative for fever, and chills. Neck: Negative for injury, pain, and ms3 swelling, Cardiovascular: Negative for chest pain, and palpitations. Respiratory: Negative for shortness of breath, cough, wheezing, and pleuritic chest pain, MS/Extremity: Negative for injury and deformity, 07:33 Abdomen/GI: Positive for abdominal pain, nausea and vomiting, 07:33 All other systems are negative, Exam: 07:33 Constitutional: This is a well developed, well nourished patient who is awake, alert, ms3 and in no acute distress. Head/Face: Normocephalic, atraumatic. Neck: Trachea midline, no cervical lymphadenopathy. Supple, full range of motion without nuchal rigidity, or vertebral point tenderness. No Meningismus. Chest/axilla: Normal chest wall appearance and motion. Nontender with no deformity. Cardiovascular: Regular rate and rhythm with a normal S1 and S2. No gallops, murmurs, or rubs. Normal PMI, no JVD. No pulse deficits. Respiratory: Lungs have equal breath sounds bilaterally, clear to auscultation and percussion. No rales, rhonchi or wheezes noted. No increased work of breathing, no retractions or nasal flaring. 07:33 Abdomen/GI: Inspection: abdomen appears normal, Bowel sounds: normal, Palpation: mild abdominal tenderness, in the right lower quadrant and left lower quadrant, Vital Signs: 07:17 BP 116 / 65; Pulse 103; Resp 16; Temp 98.1(O); Pulse Ox 100% on R/A; Weight 60.78 kg; hb Height 5 ft. 7 in. ; Pain 5/10; 08:13 BP 117 / 62; Pulse 90; Resp 17; Temp 98; Pulse Ox 99% on R/A; rs5 07:17 Body Mass Index 20.99 (60.78 kg, 170.18 cm) hb 07:17 Pain Scale: Adult hb MDM: 07:33 Patient medically screened. ms3 07:33 Differential diagnosis: Nonspecific abd pain, UTI versus hyperemesis gravidarum. ms3 10:22 Data reviewed: vital signs, nurses notes, lab test result(s), radiologic studies, and ms3 as a result, I will discharge patient. I considered the following discharge prescriptions or medication management in the emergency department Medications were administered in the Emergency Department. See MAR. Care significantly affected by the following chronic conditions: Hypertension. Counseling: I had a detailed discussion with the patient and/or guardian regarding the historical points, exam findings, and any diagnostic results supporting the discharge/admit diagnosis, lab results, radiology results, the need for outpatient follow up, to return to the emergency department if symptoms worsen or persist or if there are any questions or concerns that arise at home. Special discussion: I discussed with the patient/guardian in detail that at this point there is no indication for admission to the hospital. It is understood, however, that if the symptoms persist or worsen the patient needs to return immediately for re-evaluation. ED course: On reevaluation patient improved, alert and oriented x 4, no apparent distress, nontoxic-appearing, ambulatory in emergency department, tolerating p.o. Patient to follow-up with her OB in 2 to 3 days. Patient understands and agrees with plan. All questions were answered. Return precautions discussed include worsening symptoms, or any other concerns. Prescription for promethazine rectal suppositories given. 10/18 07:31 Order name: CBC with Diff; Complete Time: 09:02 ms3 10/18 07:31 Order name: CMP; Complete Time: 09:02 ms3 10/18 07:31 Order name: Urinalysis w/ reflexes; Complete Time: 10:17 ms3 10/18 08:27 Order name: CBC Smear Scan; Complete Time: 09:02 EDMS 10/18 07:31 Order name: US OB Limited; Complete Time: 09:02 ms3 10/18 07:31 Order name: IV Saline Lock; Complete Time: 07:47 ms3 10/18 07:31 Order name: Labs collected and sent; Complete Time: 07:47 ms3 Administered Medications: 07:50 Drug: D5-NS IV 1000 ml IV at bolus bolus Route: IV; Rate: bolus; Site: left antecubital;rs5 08:10 Follow up: Response: No adverse reaction rs5 10:17 Drug: Ondansetron IVP 4 mg IVP once; over 2 minutes Route: IVP; Site: left antecubital; rs5 10:40 Follow up: Response: No adverse reaction; Nausea is decreased rs5 Disposition Summary: 10/18/23 10:22 Discharge Ordered Notes: Location: Home ms3 Condition: Stable ms3 Diagnosis - Vomiting ms3 - Anemia, unspecified ms3 - 18 weeks gestation of ms3 Followup: ms3 - With: Private Physician - When: 2 - 3 days - Reason: Recheck today's complaints Discharge Instructions: - Discharge Summary Sheet ms3 - Vomiting, Adult ms3 Forms: - Work release form rg4 - Medication Reconciliation Form ms3 - Thank You Letter ms3 - Antibiotic Education ms3 - Prescription Opioid Use ms3 - Patient Portal Instructions ms3 - Leadership Thank You Letter ms3 Prescriptions: - promethazine 25 mg Rectal suppository - insert 1 suppository RECTAL route every 6 hours as needed for nausea and ms3 vomiting; 10 suppository; Refills: 0, Product Selection Permitted Signatures: Dispatcher [facility] Bea Gardner RN RN Quinton Velez DO ms3 Arnoldo Padilla, RN RN rs5 Corrections: (The following items were deleted from the chart) 07:34 07:31 . ms3 ms3
--- NOTE | 2023-10-18 10:22 | ER ---
Nurse's Notes [facility] Name: Nan Stoddard Age: 23 yrs Sex: Female : 2000 Arrival Date: 10/18/2023 Time: 07:00 Bed 4 Private MD: Diagnosis: Vomiting;Anemia, unspecified;18 weeks gestation of Presentation: 10/18 07:17 Chief complaint: V/D, chills, and abdominal cramping since last night. Coronavirus hb screen: Client presents with at least one sign or symptom that may indicate coronavirus-19. Provider contacted for isolation considerations. Ebola Screen: No symptoms or risks identified at this time. Initial Sepsis Screen: Does the patient meet any 2 criteria? No. Patient's initial sepsis screen is negative. Does the patient have a suspected source of infection? No. Patient's initial sepsis screen is negative. Risk Assessment: Do you want to hurt yourself or someone else? Patient reports no desire to harm self or others. Onset of symptoms was October 17, 2023. 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 - Social history:: Smoking status: Patient denies any tobacco usage or history of. Screenin:15 [facility] ED Fall Risk Assessment (Adult) History of falling in the last 3 months, rs5 including since admission No falls in past 3 months (0 pts) Confusion or Disorientation No (0 pts) Intoxicated or Sedated No (0 pts) Impaired Gait No (0 pts) Mobility Assist Device Used No (0 pt) Altered Elimination No (0 pt) Score/Fall Risk Level 0 - 2 = Low Risk Oriented to surroundings, Maintained a safe environment. Abuse screen: Denies threats or abuse. Nutritional screening: No deficits noted. Tuberculosis screening: No symptoms or risk factors identified. Assessment: 07:15 General: Appears in no apparent distress. uncomfortable, Behavior is calm, cooperative. rs5 Pain: Denies pain. Neuro: Level of Consciousness is awake, alert, obeys commands, Oriented to person, place, time, situation. Cardiovascular: Heart tones S1 S2 present Rhythm is regular. Respiratory: Airway is patent Respiratory effort is even, unlabored, Respiratory pattern is regular, symmetrical, Breath sounds are clear bilaterally. GI: Abdomen is round non-distended, Bowel sounds present X 4 quads. Reports intermittent abdominal cramping and projectile vomiting without nausea since 1030 last night. : No signs and/or symptoms were reported regarding the genitourinary system. EENT: No signs and/or symptoms were reported regarding the EENT system. Derm: Skin is intact, Skin is pink, warm \T\ dry. Musculoskeletal: Circulation, motion, and sensation intact. Range of motion: intact in all extremities. 08:20 Reassessment: Patient and/or family updated on plan of care and expected duration. Pain rs5 level reassessed. Patient is alert, oriented x 3, equal unlabored respirations, skin warm/dry/pink. 09:48 Reassessment: Pt vomited in emesis bag, bile, provider notified. rs5 10:20 Reassessment: Patient and/or family updated on plan of care and expected duration. Pain rs5 level reassessed. Patient is alert, oriented x 3, equal unlabored respirations, skin warm/dry/pink. Vital Signs: 07:17 BP 116 / 65; Pulse 103; Resp 16; Temp 98.1(O); Pulse Ox 100% on R/A; Weight 60.78 kg; hb Height 5 ft. 7 in. ; Pain 5/10; 08:13 BP 117 / 62; Pulse 90; Resp 17; Temp 98; Pulse Ox 99% on R/A; rs5 07:17 Body Mass Index 20.99 (60.78 kg, 170.18 cm) hb 07:17 Pain Scale: Adult hb ED Course: 07:02 Patient arrived in ED. rg4 07:04 Quinton Suresh DO is Attending Physician. ms3 07:15 Patient has correct armband on for positive identification. Placed in gown. Bed in low rs5 position. Call light in reach. Side rails up X2. 07:18 Triage completed. hb 07:18 Arm band placed on. hb 07:20 Arnoldo Padilla, RN is Primary Nurse. rs5 08:01 US OB Limited In Process Unspecified. EDMS 10:40 No provider procedures requiring assistance completed. rs5 10:45 IV discontinued, intact, bleeding controlled, No redness/swelling at site. Pressure rs5 dressing applied. Administered Medications: 07:50 Drug: D5-NS IV 1000 ml IV at bolus bolus Route: IV; Rate: bolus; Site: left antecubital;rs5 08:10 Follow up: Response: No adverse reaction rs5 10:17 Drug: Ondansetron IVP 4 mg IVP once; over 2 minutes Route: IVP; Site: left antecubital; rs5 10:40 Follow up: Response: No adverse reaction; Nausea is decreased rs5 Medication: 08:14 VIS not applicable for this client. rs5 Outcome: 10:22 Discharge ordered by . ms3 10:45 Discharged to home ambulatory, rs5 10:45 Condition: stable 10:45 Discharge instructions given to patient, Instructed on discharge instructions, follow up and referral plans. Demonstrated understanding of instructions, follow-up care, 10:49 Patient left the ED. hb Signatures: Dispatcher [employer] EDMS Bea Gardner, RN RN Essence Norman rg4 Quinton Suresh, DO ms3 Arnoldo Padilla, RN RN rs5
[2023-10-18 11:20] VITALS: BP 116/65; TEMP 98.1; O2SAT 100
== END 2023-10-18 10:49 | disposition home or self-care (01) ==
LOC: ER 07:00
DX: O21.9 Vomiting of pregnancy, unspecified (principal); O99.012 Anemia complicating pregnancy, second trimester; Z3A.18 18 weeks gestation of pregnancy
CPT/HCPCS: 36415; 76815; 80053; 81001; 85025; 96374; 99284; J2405; J7042

== ENCOUNTER 2024-12-07 23:28 | Emergency (ER) | payer OTHER ==
--- OUTSIDE RECORDS SUMMARY | 2024-12-07 23:31 | XMS REPORT | Continuity of Care Document ---
Author Name Unknown Address [address] [facility] [address] [place] [address] [facility] thconnect Address [address] [facility] [address] [place] [address] Care Team Providers Care Research & Analytics Manager Name Role Phone Pcp, Patient Does Not Have A Primary Care Physic greta JONO UNDEROWOD Attending Clinician UnavailJono Bangura Attending Clinician Unknown, Attending Attending Clinician Unavailab britt 2, [facility] Lab Attending Clinician Unavailable Laura Hunt MD Attending Clinician [phone] LAURA HUNT Attending Clinician Unavailable LAURA HUNT Attending Clinician Unavailable KAMINI CONWAY Attending Clinician Unavailable Kamini Chino Attending Clinician [phone] Unknown, Attending Attending Clinician Unavailab de la torre Nurse, [facility] Attending Clinician Un available Live Sigala CRNA Attending Clinician [phone] Eileen Sainz MD Attending Clinician [phone] Pob, [facility] Main Attending Clinician Unavailabl e 2, [facility] Attending Clinician Unavailable STEPHANIE TODD Attending Clinician Unav ailable Ultrasound, Ang-Mfm Attending Clinician Unavaila Stephanie Malik MD Attending Clinician + Doctor Unassigned, Wingate Attending Clinician U navailable [email or web address] Attending Clinician Unavaila mp MIRIAN RODRIGUEZ Attending Clinician Unavailable Cristóbal MCCARTNEY, Luisito Attending Clinician + [phone] LUISITO SEGAL Attending Clinician Unavaila mp HUNT, LAURA CORONADO Admitting Clinician Unavailable Carrington PUGH, Laura Coronado Admitting Clinician [phone] [email or web address] Admitting Clinician Unavaila pm Payers Payer Name Policy Type Policy Number Effective Date Expirati on Date Source [id number] 2024 00:00:00 Problems Condition Name Condition Details Condition Category Status Onset Date Resolution Date Last Treatment Date Treating Clinician Comments Source History of pre-eclamp alli History of pre-eclamp alli Disease Active 6- 00:00: 00 [facility] Incomplete rectal prolapse Incomplete rectal prolapse Disease Active - 00:00: 00 [facility] History of chronic constipati on History of chronic constipati on Disease Active 8-16 00:00: 00 [facility] Depression Depression Disease Active 9- 00:00: 00 [facility] Liveborn , of alas , born in hospital by vaginal delivery Liveborn infant, of alas , born in hospital by vaginal delivery Disease Resolve d 5-09 00:00: 00 2024-04-20 00:00:00 2024-04-20 13:10:57 [facility] Mild pre-eclamp alli in third trimester Mild pre-eclamp alli in third trimester Disease Resolve d 0 5-09 00:00: 00 2024-04-20 00:00:00 2024-04-20 13:10:57 [facility] 39 weeks gestation of 39 weeks gestation of Disease Resolve d 0 5-08 00:00: 00 2024-04-20 00:00:00 2024-04-20 13:10:57 [facility] Elevated BP without diagnosis of hypertensi on Elevated BP without diagnosis of hypertensi on Disease Resolve d 0 4-24 00:00: 00 2024-04-20 00:00:00 2024-04-20 14:28:55 [facility] Normal in third trimester Normal in third trimester Disease Resolve d 3- 00:00: 00 2024-04-20 00:00:00 2024-04-20 14:28:52 [facility] Uterine size-date discrepanc y in third trimester Uterine size-date discrepanc y in third trimester Disease Resolve d - 00:00: 00 2024-04-20 00:00:00 2024-04-20 14:28:49 [facility] Excessive weight gain during in third trimester Excessive weight gain during in third trimester Disease Resolve d 01-24 00:00: 00 2024-04-20 00:00:00 2024-04-20 14:28:54 [facility] Yoakum Hick's contractio n Alejandro Hick's contractio n Disease Resolve d 01-24 00:00: 00 2024-04-20 00:00:00 2024-04-20 14:28:50 [facility] Routine gynecologi valentino examinatio n Routine gynecologi valentino examinatio n Disease Resolve d 8-16 00:00: 00 2024-01-25 00:00:00 2024-01-25 21:44:56 [facility] Cervical cancer screening Cervical cancer screening Disease Resolve d 8-16 00:00: 00 2024-01-25 00:00:00 2024-01-25 21:45:00 [facility] Need for vaccinatio n Need for vaccinatio n Disease Resolve d 8-16 00:00: 00 2024-01-25 00:00:00 2024-01-25 21:45:04 [facility] Allergies, Adverse Reactions, Alerts Allergy Name Allergy Type Status Severity Reaction(s) Onset Date Inactive Date Treating Clinician Comments Source Penicill in Propensi ty to adverse reaction s Active Anaphylaxis 01-24 00:00: 00 [facility] PENICILL IN DRUG INGREDI Active Anaphylaxis 3-19 00:00: 00 [facility] Penicill ins Propensi ty to adverse reaction s to drug Active Unknown - See comments 05-31 00:00: 00 [facility] states allergic to PCN and that is why she does not take it. [facility] PENICILL INS Drug Class Active Unknown-Cmnt 05-31 00:00: 00 [facility] NO KNOWN ALLERGIE S Drug Class Active [facility] Social History Social Habit Start Date Stop Date Quantity Comments Source ASSERTION 2023-07-01 00:00:00 [facility] intake 2024-08-02 00:00:00 2024-08-02 00:00:00 Ex-drinker (finding) [facility] Tobacco use and exposure 2024-03-17 00:00:00 2024-03-17 00:00:00 Smokeless tobacco non-user [facility] Alcohol intake 2024-03-08 00:00:00 2024-03-08 00:00:00 Ex-drinker (finding) [facility] Exposure to SARS-CoV-2 (event) 2022-06-13 00:00:00 2022-06-23 09:43:00 Not sure [facility] History of Social function 2022-06-23 00:00:00 2022-06-23 00:00:00 [facility] Sex assigned at 2000 00:00:00 2000 00:00:00 [facility] Smoking Status Start Date Stop Date Source Never smoked tobacco [facility] Medications Ordered Medication Name Filled Medication Name Start Date Stop Date Current Medication? Ordering Clinician Indication Dosage Frequency Signature (SIG) Comments Components Source chlorhexidi ne 0.12 % mouthwash 12-06 00:00: 00 Yes [id number] 15mL Swish and spit out 15 mL in the morning and 15 mL in the evening. [facility] clindamycin 300 mg capsule 12-06 00:00: 00 12-14 05:59 :00 Yes [id number] 300mg Take 1 capsule by mouth 4 (four) times daily for 7 days. [facility] sulfamethox azole-trime thoprim (BACTRIM DS) 800-160 mg per tablet 05-22 00:00: 00 05-30 04:59 :00 No [id number] 1{tbl} Take 1 tablet by mouth in the morning and 1 tablet in the evening. Do all this for 7 days. [facility] vitamin w/FA tablet 03-17 00:00: 00 04-20 00:00 :00 No [id number] 1{tbl} Take 1 tablet by mouth in the morning. [facility] docusate 100 mg capsule 03-17 00:00: 00 04-20 00:00 :00 No [id number] 200mg Take 2 capsules by mouth once daily as needed for Constipati on. [facility] ferrous sulfate 325 mg (65 mg iron) tablet 03-17 00:00: 00 04-20 00:00 :00 No [id number] 325mg Take 1 tablet by mouth in the morning. [facility] ibuprofen 800 mg tablet 03-17 00:00: 00 04-20 00:00 :00 No [id number] 800mg Take 1 tablet by mouth every 8 (eight) hours as needed (pain). Take with food or milk. [facility] rho(D) immune globulin (HYPERRHO/R HOGAM) syringe 300 mcg 03-16 22:40: 31 Yes 300ug [facility] HYDROcodone -acetaminop hen (NORCO 5) 5-325 mg tablet 1 tablet 03-16 22:40: 28 Yes 1{tbl} [facility] ibuprofen (IBU) tablet 600 mg 03-16 22:40: 28 Yes 600mg 600 mg, Oral, Q6HPRN, Starting on Krissy 03/16/24 at 1740, Until Discontinu ed, Routine, Pain (scale 4-6) [facility] acetaminoph en (TYLENOL) tablet 650 mg 03-16 22:40: 28 Yes 650mg [facility] diphenhydrA MINE (BENADRYL) tablet 25 mg 03-16 22:40: 28 Yes 25mg [facility] ondansetron (ZOFRAN (PF)) injection 4 mg 03-16 22:40: 28 Yes 4mg [facility] simethicone (GAS RELIEF (SIMETHICON E)) chewable tablet 160 mg 03-16 22:40: 28 Yes 160mg [facility] docusate (COLACE) capsule 200 mg 03-16 22:40: 28 Yes 200mg [facility] magnesium hydroxide (MILK OF MAGNESIA) 400 mg/5 mL suspension 30 mL 03-16 22:40: 28 Yes 30mL [facility] benzocaine- menthol (DERMOPLAST ) 20-0.5 % topical spray 03-16 22:40: 27 Yes Topical, PRN, Starting on Wed03/16/24 at 1740, Until Discontinu ed, Routine, Perineum discomfort [facility] witch Silvano (TUCKS) 50 % topical pad 03-16 22:40: 18 Yes Topical, Q4HPRN, Starting on Wed03/16/24 at 1740, Until Discontinu ed, Routine, rectal/hem orrhoidal pain [facility] oxytocin (PITOCIN) 30 units in NS 500 mL IV infusion 03-16 17:45: 00 03-17 16:23 :09 No 2mU/min at 2-40 mL/hr, IV Infusion, TITRATE, Starting on Wed03/16/24 at 1245, Until Wed03/17/24 at 1123, RENATE [facility] PIB fentaNYL-ro pivacaine 2 mcg/mL-0.1 % (PF) in NS 200 mL epidural infusion RTU 03-16 15:12: 00 03-17 03:52 :38 No Epidural, ONCE INTRA PROCEDURE, Starting on Wed03/16/24 at 1012, Until Krissy 03/16/24 at 2252, Routine, Intra-op [facility] lidocaine-e pinephrine (XYLOCAINE W/EPINEPHRI NE) 1.5 %-1:200,000 injection 03-16 15:11: 00 03-17 03:52 :38 No Epidural, ONCE INTRA PROCEDURE, Starting on Krissy 03/16/24 at 1011, Until Krissy 03/16/24 at 2252, Routine, Intra-op [facility] lidocaine 1% (XYLOCAINE) 100 mg/10 mL (1 %) injection 03-16 15:06: 00 03-17 03:52 :38 No Infiltrati on, ONCE INTRA PROCEDURE, Starting on Krissy 03/16/24 at 1006, Until Krissy 03/16/24 at 2252, Routine, Intra-op [facility] misoprostol (CYTOTEC) quarter-tab let 25 mcg 03-16 05:45: 00 03-16 06:27 :00 No 25ug 25 mcg, Oral, ONCE, 1 dose, On Krissy 03/16/24 at 0045, Routine [facility] misoprostol (CYTOTEC) quarter-tab let 25 mcg 03-16 05:34: 27 03-17 12:32 :57 No 25ug 25 mcg, Vaginal, Q4H ABX, First dose on Krissy 03/16/24 at 0045, Until Discontinu ed, Routine [facility] FENTanyl PF (SUBLIMAZE (PF)) injection 100 mcg 03-16 05:34: 27 03-17 16:23 :09 No 100ug 100 mcg, Slow IV Push, Q1HPRN, Starting on Krissy 03/16/24 at 0034, Until Wed03/17/24 at 1123, Routine, contractio n pain without an epidural and SVE < 8 cm and Cat I strip [facility] lactated ringers IV infusion 500 mL 03-16 05:34: 27 03-17 16:22 :55 No 500mL at 999 mL/hr, 500 mL, IV Infusion, PRN - SEE INSTRUCTIO NS, Starting on Krissy 03/16/24 at 0034, Until Wed03/17/24 at 1122, Routine [facility] D5W-LR IV infusion 1,000 mL 03-16 05:34: 27 03-17 16:22 :55 No 1000mL at 1-125 mL/hr, IV Infusion, TITRATE, Starting on Krissy 03/16/24 at 0034, Until Wed03/17/24 at 1122, Routine [facility] oxytocin (PITOCIN) 30 units in NS 500 mL IV infusion 03-16 05:34: 27 03-16 21:39 :00 No 600mL/h 600 mL/hr, IV Infusion, PRN, PPH, Starting on Krissy 03/16/24 at 0034, For 1 dose, As instructed by physician at bedside. [facility] PNV 11-Iron Fum-Folic Acid-OM3 28 mg iron-1 mg -200 mg Cap 01-24 14:47: 00 03-17 00:00 :00 No Take by mouth. [facility] bisacodyL (DULCOLAX, BISACODYL,) 5 mg EC tablet 01-24 00:00: 00 03-17 00:00 :00 No [id number] 10mg Take 2 tablets by mouth once daily as needed for Constipati on. [facility] No known medications 816 11:00: 39 No No known medication s [facility] Immunizations Ordered Immunization Name Filled Immunization Name Date Status Comments Source TDAP (ADACEL) VACCINE 2013-06-08 00:00:00 Completed TDAP (ADACEL) VACCINE Unknown Completed [facility] TDAP (ADACEL) VACCINE Unknown Completed [facility] TDAP (ADACEL) VACCINE Unknown Completed [facility] TDAP (ADACEL) VACCINE Unknown Completed [facility] Vital Signs Vital Name Observation Time Observation Value Comments S devora Systolic blood pressure 2024-12-06 18:30:00 120 mm[Hg] [place] [facility] Diastolic blood pressure 2024-12-06 18:30:00 88 mm[Hg] [facility] Heart rate 2024-12-06 18:30:00 110 /min [facility] Body temperature 2024-12-06 18:30:00 37.17 Lucie [facility] Respiratory rate 2024-12-06 18:30:00 18 /min [facility] Body weight 2024-12-06 18:30:00 72.893 kg [facility] BMI 2024-12-06 18:30:00 25.17 kg/m2 [facility] Oxygen saturation in Arterial blood by Pulse oximetry 2024-12-06 18:30:00 97 /min [facility] Body height 2024-08-02 18:06:00 170.2 cm [facility] Body weight 2024-08-02 18:06:00 70.67 kg [facility] BMI 2024-08-02 18:06:00 24.40 kg/m2 [facility] Systolic blood pressure 2024-08-02 18:06:00 114 mm[Hg] [facility] Diastolic blood pressure 2024-08-02 18:06:00 79 mm[Hg] [facility] Heart rate 2024-08-02 18:06:00 89 [facility] Body temperature 2024-08-02 18:06:00 36.72 Lucie [facility] Respiratory rate 2024-08-02 18:06:00 16 /min [facility] Systolic blood pressure 2024-05-23 01:09:00 121 mm[Hg] [facility] Diastolic blood pressure 2024-05-23 01:09:00 83 mm[Hg] [facility] Heart rate 2024-05-23 01:09:00 94 /min [facility] Body temperature 2024-05-23 01:09:00 37.11 Lucie [facility] Respiratory rate 2024-05-23 01:09:00 17 /min [facility] Body weight 2024-05-23 01:09:00 71.079 kg [facility] BMI 2024-05-23 01:09:00 24.54 kg/m2 [facility] Oxygen saturation in Arterial blood by Pulse oximetry 2024-05-23 01:09:00 98 /min [facility] Systolic blood pressure 2024-04-20 18:20:00 118 mm[Hg] [facility] Diastolic blood pressure 2024-04-20 18:20:00 90 mm[Hg] [facility] Body temperature 2024-04-20 18:20:00 35.89 Lucie [facility] Body height 2024-04-20 18:20:00 170.2 cm [facility] Body weight 2024-04-20 18:20:00 72.576 kg [facility] BMI 2024-04-20 18:20:00 25.06 kg/m2 [facility] Systolic blood pressure 2024-03-20 16:15:00 129 mm[Hg] [facility] Diastolic blood pressure 2024-03-20 16:15:00 89 mm[Hg] [facility] Heart rate 2024-03-20 16:15:00 99 /min [facility] Respiratory rate 2024-03-20 16:15:00 18 /min [facility] Body height 2024-03-20 16:15:00 170.2 cm [facility] Body weight 2024-03-20 16:15:00 77.565 kg [facility] BMI 2024-03-20 16:15:00 26.78 kg/m2 [facility] Systolic blood pressure 2024-03-17 18:00:00 118 mm[Hg] [facility] Diastolic blood pressure 2024-03-17 18:00:00 72 mm[Hg] [facility] Heart rate 2024-03-17 18:00:00 89 /min [facility] Body temperature 2024-03-17 18:00:00 36.89 Lucie [facility] Respiratory rate 2024-03-17 18:00:00 18 /min [facility] Oxygen saturation in Arterial blood by Pulse oximetry 2024-03-17 18:00:00 100 /min [facility] Body height 2024-03-16 05:36:00 170.2 cm [facility] Body weight 2024-03-16 05:36:00 84.55 kg [facility] BMI 2024-03-16 05:36:00 29.19 kg/m2 [facility] Systolic blood pressure 2024-03-15 16:09:00 119 mm[Hg] [facility] Diastolic blood pressure 2024-03-15 16:09:00 75 mm[Hg] [facility] Heart rate 2024-03-15 16:08:00 113 /min [facility] Body temperature 2024-03-15 16:08:00 36.39 Lucie [facility] Body height 2024-03-15 16:08:00 170.2 cm [facility] Body weight 2024-03-15 16:08:00 83.825 kg [facility] BMI 2024-03-15 16:08:00 28.94 kg/m2 [facility] Systolic blood pressure 2024-03-08 19:14:00 130 mm[Hg] [facility] Diastolic blood pressure 2024-03-08 19:14:00 81 mm[Hg] [facility] Heart rate 2024-03-08 19:14:00 84 /min [facility] Body temperature 2024-03-08 19:14:00 36.72 Lucie [facility] Respiratory rate 2024-03-08 19:14:00 18 /min [facility] Body height 2024-03-08 19:14:00 170.2 cm [facility] Body weight 2024-03-08 19:14:00 81.647 kg [facility] BMI 2024-03-08 19:14:00 28.19 kg/m2 [facility] Systolic blood pressure 2024-03-01 19:22:00 119 mm[Hg] [facility] Diastolic blood pressure 2024-03-01 19:22:00 75 mm[Hg] [facility] Heart rate 2024-03-01 19:11:00 109 /min [facility] Body height 2024-03-01 19:11:00 170.2 cm [facility] Body weight 2024-03-01 19:11:00 80.65 kg [facility] BMI 2024-03-01 19:11:00 27.85 kg/m2 [facility] Systolic blood pressure 2024-02-23 16:34:00 122 mm[Hg] [facility] Diastolic blood pressure 2024-02-23 16:34:00 82 mm[Hg] [facility] Heart rate 2024-02-23 16:34:00 84 /min [facility] Body height 2024-02-23 16:34:00 170.2 cm [facility] Body weight 2024-02-23 16:34:00 80.377 kg [facility] BMI 2024-02-23 16:34:00 27.75 kg/m2 [facility] Systolic blood pressure 2024-02-08 19:37:00 125 mm[Hg] [facility] Diastolic blood pressure 2024-02-08 19:37:00 78 mm[Hg] [facility] Heart rate 2024-02-08 19:37:00 108 /min [facility] Body height 2024-02-08 19:37:00 170.2 cm [facility] Body weight 2024-02-08 19:37:00 78.563 kg [facility] BMI 2024-02-08 19:37:00 27.13 kg/m2 [facility] Systolic blood pressure 2024-01-25 19:52:00 125 mm[Hg] [facility] Diastolic blood pressure 2024-01-25 19:52:00 85 mm[Hg] [facility] Heart rate 2024-01-25 19:52:00 106 /min [facility] Body height 2024-01-25 19:52:00 170.2 cm [facility] Body weight 2024-01-25 19:52:00 76.295 kg [facility] BMI 2024-01-25 19:52:00 26.34 kg/m2 [facility] Systolic blood pressure 2022-06-23 14:56:00 121 mm[Hg] [facility] Diastolic blood pressure 2022-06-23 14:56:00 86 mm[Hg] [facility] Heart rate 2022-06-23 14:56:00 87 /min [facility] Respiratory rate 2022-06-23 14:56:00 18 /min [facility] Body height 2022-06-23 14:56:00 170.2 cm [facility] Body weight 2022-06-23 14:56:00 60.782 kg [facility] BMI 2022-06-23 14:56:00 20.99 kg/m2 [facility] Oxygen saturation in Arterial blood by Pulse oximetry 2022-06-23 14:56:00 100 /min [facility] Procedures Procedure Date / Time Performed Performing Clinician Source CBC WITH DIFF 2024-03-17 09:08:00 Laura Hunt [facility] SGOT (ASPARTATE AMINO TRANSFER) 2024-03-16 19:57:00 Laura Hunt [facility] CREATININE 2024-03-16 19:57:00 Laura Hunt [facility] ALANINE AMINO TRANSFERASE(SGPT 2024-03-16 19:57:00 Laura Hunt [facility] LACTATE DEHYDROGENASE 2024-03-16 19:57:00 Laura Hunt [facility] URIC ACID 2024-03-16 19:57:00 Laura Hunt [facility] URINALYSIS 2024-03-16 19:57:00 Laura Hunt [facility] PROTEIN CREAT RATIO URINE RANDOM 2024-03-16 19:57:00 Laura Hunt [facility] CENTRAL NEURAXIAL BLOCK 2024-03-16 15:29:00 Madison Sigala [facility] HB ABO GROUPING 2024-03-16 06:00:00 Laura Hunt [facility] RHO (D) IMMUNE GLOBULIN 2024-03-16 06:00:00 Laura Hunt [facility] CBC WITH DIFF 2024-03-15 16:58:00 HuntLaura [facility] POCT URINALYSIS W/O SPECIFIC GRAVITY 2024-03-15 00:00:00 Laura Hunt [facility] POCT URINALYSIS W/O SPECIFIC GRAVITY 2024-03-08 00:00:00 HuntLaura [facility] POCT URINALYSIS W/O SPECIFIC GRAVITY 2024-03-01 00:00:00 HuntLaura [facility] >14 WEEKS US LIMITED 2024-02-23 17:17:25 Laura Hunt [facility] CBC WITH DIFF 2024-02-23 16:58:00 Laura Hunt [facility] POCT URINALYSIS W/O SPECIFIC GRAVITY 2024-02-23 00:00:00 Laura Hunt [facility] POCT URINALYSIS W/O SPECIFIC GRAVITY 2024-02-08 00:00:00 HuntLaura [facility] SECOND AND THIRD TRIMESTER ULTRASOUND 2024-02-04 15:29:24 Laura Hunt [facility] ASSIGNMENT OF BENEFITS 2024-01-25 18:54:46 Docto r Unassigned, Wingate [facility] POCT URINALYSIS W/O SPECIFIC GRAVITY 2024-01-25 00:00:00 Laura Hunt [facility] RAPID RESPONSE TEAM DOCUMENTATION 2024-01-13 06:01:00 Doctor Unassigned, Wingate [facility] Encounters Start Date/Time End Date/Time Encounter Type Admission Type Attending [facility] Care Facility Care Department Encounter ID Source 2024-12-06 12:20:00 2024-12-06 13:23:30 Outpatient R JONO UNDERWOOD [facility] [id number] [facility] 2024-12-06 12:20:00 2024-12-06 13:23:30 Urgent Care Jono Underwood Unknown, Attending [facility] [id number] [facility] 2024-08-02 13:30:00 2024-08-02 13:45:00 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 Visit 2, Adc Lab Kathe Huntbaltazar Coronado 2, Adc Lab [facility] [id number] [facility] 2024-08-02 13:00:00 2024-08-02 13:26:34 Outpatient R HUNT LAURA LOWE [facility] [id number] [facility] 2024-08-02 13:00:00 2024-08-02 13:26:34 Office Visit Laura Hunt [facility] [id number] [facility] 2024-06-22 08:15:00 2024-06-22 08:15:00 Outpatient R LAURA HUNT VIEN [facility] [id number] [facility] 2024-05-22 19:40:00 2024-05-22 20:32:34 Outpatient R KAMINI CONWAY [facility] [id number] [facility] 2024-05-22 19:40:00 2024-05-22 20:00:00 Urgent Care Kamini Conway Unknown, Attending [facility] [id number] [facility] 2024-04-20 13:15:00 2024-04-20 13:27:53 Outpatient R LAURA HUNT [facility] [id number] [facility] 2024-04-20 13:15:00 2024-04-20 13:27:53 [facility] [id number] [facility] 2024-03-20 10:30:00 2024-03-20 11:15:29 Outpatient R LAURA HUNT [facility] [id number] [facility] 2024-03-20 10:30:00 2024-03-20 11:15:29 Nurse Visit Nurse, [facility] Laura Hunt [facility] [id number] [facility] 2024-03-16 00:26:00 2024-03-17 18:20:00 Inpatient P LAURA HUNT [facility] DASHA [id number] [facility] 2024-03-16 00:26:00 2024-03-17 18:20:00 Hospital Encounter Laura Hunt [facility] 1.2840.114 350.1.13.10 4.2.7.2.686 [id number] [facility] 2024-03-16 00:26:00 2024-03-17 18:20:00 Inpatient P LAURA HUNT [facility] DASHA [id number] [facility] 2024-03-16 10:01:00 2024-03-16 18:43:00 Anesthesia Event Live Sigala Stacey [facility] 1.2840.114 350.1.13.10 4.2.7.2.686 [id number] [facility] 2024-03-15 00:00:00 2024-03-15 12:11:28 Telephone Laura Hunt [facility] 1.2840.114 350.1.13.10 4.2.7.2.686 [id number] [facility] 2024-03-15 11:30:00 2024-03-15 11:45:00 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 Visit Pob, Adc Lab Main Laura Hunt [facility] 1.2.840.114 350.1.13.10 4.2.7.2.686 [id number] [facility] 2024-03-15 11:00:00 2024-03-15 11:25:49 Outpatient R LAURA HUNT [facility] [id number] [facility] 2024-03-15 11:00:00 2024-03-15 11:25:49 Routine Visit Laura Hunt [facility] BUILDING 1.2.840.114 350.1.13.10 4.2.7.2.686 [id number] [facility] 2024-03-08 14:15:00 2024-03-08 14:46:17 Outpatient R LAURA HUNT [facility] [id number] [facility] 2024-03-08 14:15:00 2024-03-08 14:46:17 Routine Visit Laura Hunt [facility] BU[facility]ING 1.2.840.114 350.1.13.10 4.2.7.2.686 [id number] [facility] 2024-03-08 14:15:00 2024-03-08 14:46:17 Outpatient R LAURA HUNT [facility] [id number] [facility] 2024-03-01 14:15:00 2024-03-01 14:22:23 Outpatient R LAURA HUNT [facility] [id number] [facility] 2024-03-01 14:15:00 2024-03-01 14:22:23 Routine Visit Laura Hunt [facility] BUILDING 1.2.840.114 350.1.13.10 4.2.7.2.686 [id number] [facility] 2024-02-23 11:45:00 2024-02-23 12:57:48 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 Visit 2, Adc Lab Laura Hunt [facility] 1.2.840.114 350.1.13.10 4.2.7.2.686 [id number] [facility] 2024-02-23 11:15:00 2024-02-23 11:56:21 Outpatient R LAUAR HUNT [facility] [id number] [facility] 2024-02-23 11:15:00 2024-02-23 11:56:21 Routine Visit Laura Hunt [facility] [place] [place] NAL BUILDING 1..840.114 350.1.13.10 4.2.7.2.686 [id number] [facility] 2024-02-08 14:30:00 2024-02-08 14:45:00 Routine Visit Laura Hunt [facility] BUILDING 1.84.114 350.1.13.10 4.2.7.2.686 [id number] [facility] 2024-02-08 14:30:00 2024-02-08 14:30:00 Outpatient R LAURA HUNT [facility] [id number] [facility] 2024-02-04 08:00:00 2024-02-04 09:09:55 Outpatient P STEPHANIE LIU [facility] [id number] [facility] 2024-02-04 08:00:00 2024-02-04 09:09:55 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 Visit Ultrasound, Stephanie Abad [facility] 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 [facility] 1.840.114 350.1.13.10 4.2.7.2.686 [id number] [facility] 2024-01-25 14:00:00 2024-01-25 15:20:46 Outpatient R LAURA HUNT [facility] [id number] [facility] 2024-01-25 14:00:00 2024-01-25 15:20:46 Initial Visit [facility] 1..840.114 350.1.13.10 4.2.7.2.686 [id number] [facility] 2024-01-25 00:00:00 2024-01-25 00:00:00 Orders Only Doctor Unassigned, Wing[facility] 1..840.114 350.1.13.10 4.2.7.2.686 [id number] [facility] 2024-01-13 11:00:33 2024-01-13 11:00:[address] [facility] [id number] Nitish F [place] 2024-01-13 00:00:00 2024-01-13 00:00:00 Orders Only Doctor Unassigned, Wingate [facility] 1..840.114 350.1.13.10 4.2.7.2.686 [id number] [facility] 2023-12-17 13:33:07 2023-12-17 13:33:[address] [facility] [id number] Nitish Judy Clark 2023-12-16 11:02:14 2023-12-16 11:02:14 Outpatient SFA JODEE [id number] Nitish Judy Clark 2023-11-16 11:20:07 2023-11-16 11:20:07 Outpatient SFA [facility] [id number] Nitish Judy Clark 2023-11-04 08:40:25 2023-11-04 08:40:25 Outpatient SFA [facility] [id number] Nitish Judy Clark 2023-10-19 11:29:47 2023-10-19 11:29:[address] [facility] [id number] Nitish Rodas 2023-09-23 14:53:48 2023-09-23 14:53:48 Outpatient [id number] Nitish Rodas 2023-09-21 11:19:59 2023-09-21 11:19:[address] [facility] [id number] Nitish Rodas 2023-09-07 00:00:00 2023-09-07 00:00:00 Outpatient GC_GCBZW_Ka diyala_S [facility] [id number] [facility] 2023-08-24 15:24:20 2023-08-24 15:24:20 Outpatient [place] [id number] Nitish Rodas 2023-08-23 12:11:17 2023-08-23 12:11:17 Outpatient [facility] [id number] Nitish Rodas 2023-08-11 15:41:27 2023-08-11 15:41:27 Outpatient [id number] Nitish Kim [place] 2023-08-04 14:30:00 2023-08-04 14:30:00 Outpatient R MIRIAN RODRIGUEZ [facility] [id number] [facility] 2022-06-23 09:30:00 2022-06-23 10:34:49 Office Visit Luisito Segal [facility] 1.2.840.114 350.1.13.10 4.2.7.2.686 [id number] [facility] 2022-06-23 09:30:00 2022-06-23 10:34:49 Outpatient R LUISITO SEGAL CHERYAL [facility] [id number] [facility] 2022-06-23 09:30:00 2022-06-23 10:34:49 Outpatient R LUISITO SEGAL CHERYAL [facility] [id number] [facility] 2022-06-23 09:30:00 2022-06-23 10:34:49 Outpatient R LUISITO SEGAL CHERYAL [facility] [id number] [facility] 2022-06-23 09:30:00 2022-06-23 10:34:49 Outpatient R LUISITO SEGAL CHERYAL [facility] [id number] [facility] 2022-06-23 00:00:00 2022-06-23 00:00:00 Orders Only Doctor Unassigned, Wing[place] [facility] 1.2.840.114 350.1.13.10 4.2.7.2.686 [id number] [facility] Results Test Description Test Time Test Comments Results Result Co mments Source [facility] IMMUNE [id number] 23:26:59* Test Item Value Reference Range Interpretation Comme nts RHIG CANDIDATE? (test code = 5188) No- see comment Patient is not a candidate for RhIg- Patient is Rh Positive.Performed at [facility] Laboratory Services - [facility] [address] [place], [place] [id number] Free: [phone] No. [id number] [facility]axial [id number] 15:29:00 Live Sigala CRNA ? ? 03/16/2024 10:30 AM Central Neuraxial Block Date/Time: 03/16/2024 10:29 AM Performed by: Live Sigala CRNAAuthorized by: Nava Martinez MD ?Patient Location: OBReason for Block:OB request, Patient request, Labor analgesia, Surgical anesthesia and Post-op pain managementStaff: ?Anesthesiologist: Nava Martinez MD ?Resident/VICE PRESIDENT OF PRODUCT MARKETING: Live Sigala CRNA ?Performed by: resident/RAFYPreanesthetic Checklist: patient identified, IV checked, risks and benefits explained, monitors and equipment checked, timeout performed, pre-op evaluation, site marked and anesthesia consentProcedure: ?Type of Neuraxial: Epidural ?Epidural Description: 1st attempt ? Sterility Prep cap, drape, gloves, hand hygiene and mask ? ?Sedation Level no sedation ?Patient Position: sitting ?Prep: Betadineand patient draped ? ?Monitoring: heart rate, continuous pulse ox, heart rate / toco and NIBP?Location: lumbar (1-5) ?Lumbar: L3-L4 ?Approach: midline ? ?Technique: LOC air and catheter ?Guidance with: landmark technique}Epidural/Spinal [facility] and/or Catheter: ?Epidural/Spinal Kit: BBraun ?Needle Type: Tuohy ?Needle Gauge: 17 G ?Needle Length: 3.5 in (8.89 cm) ?Needle Insertion Depth: 5 ?Catheter Type: multiport ? ?Catheter Size: 19 G ? ?Catheter at Skin Depth: 11 ?Number of Attempts: 1?Test Dose: lidocaine 1.5% with epinephrine 1-to-200,000 and negative ? ?Dose: 3 cc ? ?Catheter Securement Method: surgical tape and TegadermAssessment: ?Sensory Level: above T10 ?Block Outcome: successful block, no apparent complications, pain relieved, patient tolerated procedure well, patient satisfied, patient comfortable, positive pain relief, appropriate motor block, appropriate sensory block, pain improved and a full evaluation is pending ? ?Procedure Assessment: patient tolerated procedure well with no complicationsNotes: ? Smooth and atraumatic, (+) Local, (+) STFUniM[facility] CenterCentral Neuraxial [id number] 15:29:00Live Sigala CRNA ? ? 03/16/2024 10:30 AM Central Neuraxial Block Date/Time: 03/16/2024 10:29 AM Performed by: Live Sigala CRNAAuthorized by: Nava Martinez MD ?Patient Location: OBReason for Block:OB request, Patient request, Labor analgesia, Surgical anesthesia and Post-op pain managementStaff:?Anesthesiologist: Nava Martinez MD ?Resident/VICE PRESIDENT OF PRODUCT MARKETING: Live Sigala CRNA ?Performed by: resident/RAFYPreanesthetic Checklist: patient identified, IV checked, risks and benefits explained, monitors and equipment checked, timeout performed, pre-op evaluation, site marked and anesthesia consentProcedure: ?Type of Neuraxial: Epidural ?Epidural Description: 1st attempt ? Sterility Prep cap, drape, gloves, hand hygiene and mask ? ?Sedation Level no sedation ?Patient Position: sitting ?Prep: Betadineand patient draped ? ?Monitoring: heart rate, continuous pulse ox, heart rate / toco and NIBP ?Location: lumbar (1-5) ?Lumbar: L3-L4 ?Approach: midline ? ?Technique: LOC air and catheter ?Guidance with: landmark technique}Epidural/Spinal [facility] and/or Catheter: ?Epidural/Spinal Kit: BBraun ?Needle Type: Tuohy ?Needle Gauge: 17 G ?Needle Length: 3.5 in (8.89 cm) ?Needle Insertion Depth: 5 ?Catheter Type: multiport ? ?Catheter Size: 19 G ? ?Catheter at Skin Depth: 11 ?Number of Attempts: 1?Test Dose: lidocaine 1.5% with epinephrine 1-to-200,000 and negative ? ?Dose: 3 cc ? ?Catheter Securement Method: surgical tape and TegadermAssessment: ?Sensory Level: above T10 ?Block Outcome: successful block, no apparent complications, pain relieved, patient tolerated procedure well, patient satisfied, patient comfortable, positive pain relief, appropriate motor block, appropriate sensory block, pain improved and a full evaluation is pending ? ?Procedure Assessment: patient tolerated procedure well with no complicationsNotes: ? Smooth and atraumatic, (+) Local, (+) STFUniMission [facility] CenterCentral Neuraxial [id number] 15:29:00Live Sigala CRNA ? ? 03/16/2024 10:30 AM Central Neuraxial Block Date/Time: 03/16/2024 10:29 AM Performed by: Live Sigala CRNAAuthorized by: Nava Martinez MD ?Patient Location: OBReason for Block:OB request, Patient request, Labor analgesia, Surgical anesthesia and Post-op pain managementStaff:?Anesthesiologist: Nava Martinez MD ?Resident/VICE PRESIDENT OF PRODUCT MARKETING: Live Sigala CRNA ?Performed by: resident/CR NAPreanesthetic Checklist: patient identified, IV checked, risks and benefits explained, monitors and equipment checked, timeout performed, pre-op evaluation, site marked and anesthesia consentProcedure: ?Type of Neuraxial: Epidural ?Epidural Description: 1st attempt ? Sterility Prep cap, drape, gloves, hand hygiene and mask ? ?Sedation Level no sedation ?Patient Position: sitting ?Prep: Betadineand patient draped ? ?Monitoring: heart rate, continuous pulse ox, heart rate / toco and NIBP?Location: lumbar (1-5) ?Lumbar: L3-L4 ?Approach: midline ? ?Technique: LOC air and catheter ?Guidance with: landmark technique}Epidural/Spinal [facility] and/or Catheter: ?Epidural/Spinal Kit: BBun ?Needle Type: Tuohy ?Needle Gauge: 17 G ?Needle Length: 3.5 in (8.89 cm) ?Needle Insertion Depth: 5 ?Catheter Type: multiport ? ?Catheter Size: 19 G ? ?Catheter at Skin Depth: 11 ?Number of Attempts: 1?Test Dose: lidocaine 1.5% with epinephrine 1-to-200,000 and negative ? ?Dose: 3 cc ? ?Catheter Securement Method: surgical tape and TegadermAssessment: ?Sensory Level: above T10 ?Block Outcome: successful block, no apparent complications, pain relieved, patient tolerated procedure well, patient satisfied, patient comfortable, positive pain relief, appropriate motor block, appropriate sensory block, pain improved and a full evaluation is pending ? ?Procedure Assessment: patient tolerated procedure well with no complicationsNotes: ? Smooth and atraumatic, (+) Local, (+) STF [facility] Tyler[facility] Neuraxial [id number] 15:29:00 Live Sigala CRNA ? ? 03/16/2024 10:30 AM Central Neuraxial Block Date/Time: 03/16/2024 10:29 AM Performed by: Live Sigala CRNAAuthorized by: Nava Martinez MD ?Patient Location: OBReason for Block:OB request, Patient request, Labor analgesia, Surgical anesthesia and Post-op pain managementStaff: ?Anesthesiologist: Nava Martinez MD ?Resident/VICE PRESIDENT OF PRODUCT MARKETING: Live Sigala CRNA ?Performed by: resident/CRNAPreanesthetic Checklist: patient identified, IV checked, risks and benefits explained, monitors and equipment checked, timeout performed, pre-op evaluation, site marked and anesthesia consentProcedure: ?Type of Neuraxial: Epidural ?Epidural Description: 1st attempt ? Sterility Prep cap, drape, gloves, hand hygiene and mask ? ?Sedation Level no sedation ?Patient Position: sitting ?Prep: Betadineand patient draped ? ?Monitoring: heart rate, continuous pulse ox, heart rate / toco and NIBP?Location: lumbar (1-5) ?Lumbar: L3-L4 ?Approach: midline ? ?Technique: LOC air and catheter ?Guidance with: landmark technique}Epidural/Spinal [facility] and/or Catheter: ?Epidural/Spinal Kit: BBraun ?Needle Type: Tuohy ?Needle Gauge: 17 G ?Needle Length: 3.5 in (8.89 cm) ?Needle Insertion Depth: 5 ?Catheter Type: multiport ? ?Catheter Size: 19 G ? ?Catheter at Skin Depth: 11 ?Number of Attempts: 1?Test Dose: lidocaine 1.5% with epinephrine 1-to-200,000 and negative ? ?Dose: 3 cc ? ?Catheter Securement Method: surgical tape and TegadermAssessment: ?Sensory Level: above T10 ?Block Outcome: successful block, no apparent complications, pain relieved, patient tolerated procedure well, patient satisfied, patient comfortable, positive pain relief, appropriate motor block, appropriate sensory block, pain improved and a full evaluation is pending ? ?Procedure Assessment: patient tolerated procedure well with no complicationsNotes: ? Smooth and atraumatic, (+) Local, (+) STFUniversValley Baptist Medical Center – HarlingenType and Screen - ONCE [id number] 06:51:00* Test Item Value Reference Range Interpretation Comme nts ABO & RH (test code = 20) O POSITIVE IAT (test code = 1185) Negative [facility] TylerCb with [id number] 17:04:24* Test Item Value Reference Range Interpretation Comme nts WBC (test code = 6690-2) 7.90 4.30-11.10 RBC (test code = 789-8) 4.10 3.93-5.25 HGB (test code = 718-7) 12.6 g/dL 11.6-15.0 HCT (test code = 4544-3) 37.2 % 35.7-45.2 MCV (test code = 787-2) 90.7 fL 80.6-95.5 MCH (test code = 785-6) 30.7 pg 25.9-32.8 MCHC (test code = 786-4) 33.9 g/dL 31.6-35.1 RDW-SD (test code = 47853-2) 42.8 fL 39.0-49.9 RDW-CV (test code = 788-0) 13.1 % 12.0-15.5 PLT (test code = 777-3) 190 166-358 MPV (test code = 34729-2) 11.3 fL 9.5-12.9 NRBC/100 WBC (test code = 6659574684) 0.0 0.0-10.0 NRBC x10^3 (test code = 8806177436) See_Comment [Automated me ssage] The system which generated this result transmitted reference range: 10*3/?L. The reference range was not used to interpret this result as normal/abnormal. GRAN MAT (NEUT) % (test code = 770-8) 67.2 % IMM GRAN % (test code = 1412675556) 0.60 % LYMPH % (test code = 736-9) 23.9 % MONO % (test code = 5905-5) 6.6 % EOS % (test code = 713-8) 1.4 % BASO % (test code = 706-2) 0.3 % GRAN MAT x10^3(ANC) (test code = 5115569836) 5.31 10*3/uL 1.88-7.09 IMM GRAN x10^3 (test code = 7585007237) 0.05 10*3/uL 0.00-0.06 LYMPH x10^3 (test code = 731-0) 1.89 10*3/uL 1.32-3.29 MONO x10^3 (test code = 742-7) 0.52 10*3/uL 0.33-0.92 EOS x10^3 (test code = 711-2) 0.11 10*3/uL 0.03-0.39 BASO x10^3 (test code = 704-7) 0.01-0.07 [facility] TylerPOCT Urinalysis w/o Specific [id number] 16:06:00* Test Item Value Reference Range Interpretation Comme nts POCT PH U (test code = 3254) n/a 5-8 POCT U LEUK EST (test code = 3263) n/a Negative - Negative POCT U NIT (test code = 3262) n/a Negative - Negati ve POCT U PROT (test code = 3259) Negative Negative - Negat rekha POCT U GLU (test code = 3256) Normal Negative - Negati ve POCT U KETONE (test code = 3258) n/a Negative - Neg ative POCT U BLD (test code = 3257) n/a Negative - Negati ve [facility] Urinalysis w/o Specific [id number] 19:29:00* Test Item Value Reference Range Interpretation Comme nts POCT PH U (test code = 3254) n/a 5-8 POCT U LEUK EST (test code = 3263) n/a Negative - N egative POCT U NIT (test code = 3262) n/a Negative - Negati ve POCT U PROT (test code = 3259) neg Negative - Negat rekha POCT U GLU (test code = 3256) neg Negative - Negati ve POCT U KETONE (test code = 3258) n/a Negative - Neg ative POCT U BLD (test code = 3257) n/a Negative - Negati ve [facility] Urinalysis w/o Specific [id number] 19:09:00* Test Item Value Reference Range Interpretation Comme nts POCT PH U (test code = 3254) n/a 5-8 POCT U LEUK EST (test code = 3263) n/a Negative - Negative POCT U NIT (test code = 3262) n/a Negative - Negati ve POCT U PROT (test code = 3259) negative Negative - Negat rekha POCT U GLU (test code = 3256) negative Negative - Negati ve POCT U KETONE (test code = 3258) n/a Negative - Neg ative POCT U BLD (test code = 3257) n/a Negative - Negati ve [facility] Urinalysis w/o Specific [id number] 19:09:00* Test Item Value Reference Range Interpretation Comme nts POCT PH U (test code = 3254) n/a 5-8 POCT U LEUK EST (test code = 3263) n/a Negative - Negative POCT U NIT (test code = 3262) n/a Negative - Negati ve POCT U PROT (test code = 3259) negative Negative - Negat rekha POCT U GLU (test code = 3256) negative Negative - Negati ve POCT U KETONE (test code = 3258) n/a Negative - Neg ative POCT U BLD (test code = 3257) n/a Negative - Negati ve [facility] Urinalysis w/o Specific [id number] 16:33:00* Test Item Value Reference Range Interpretation Comme nts POCT PH U (test code = 3254) n/a 5-8 POCT U LEUK EST (test code = 3263) n/a Negative - Negative POCT U NIT (test code = 3262) n/a Negative - Negati ve POCT U PROT (test code = 3259) negative Negative - Negat rekha POCT U GLU (test code = 3256) negative Negative - Negati ve POCT U KETONE (test code = 3258) n/a Negative - Neg ative POCT U BLD (test code = 3257) n/a Negative - Negati ve [facility] Urinalysis w/o Specific [id number] 19:35:00* Test Item Value Reference Range Interpretation Comme nts POCT PH U (test code = 3254) n/a 5-8 POCT U LEUK EST (test code = 3263) n/a Negative - Negative POCT U NIT (test code = 3262) n/a Negative - Negati ve POCT U PROT (test code = 3259) negative Negative - Negat rekha POCT U GLU (test code = 3256) 100 Negative - Negati ve POCT U KETONE (test code = 3258) n/a Negative - Neg ative POCT U BLD (test code = 3257) n/a Negative - Negati ve [facility] Urinalysis w/o Specific [id number] 20:03:00* Test Item Value Reference Range Interpretation Comme nts POCT PH U (test code = 3254) n/a 5-8 POCT U LEUK EST (test code = 3263) n/a Negative - Negative POCT U NIT (test code = 3262) n/a Negative - Negati ve POCT U PROT (test code = 3259) negative Negative - Negat rekha POCT U GLU (test code = 3256) negative Negative - Negati ve POCT U KETONE (test code = 3258) n/a Negative - Neg ative POCT U BLD (test code = 3257) n/a Negative - Negati ve [facility] History and Physical Notes Date/Time Note Provider Source 2024-03-16 06:17:13 TRIAGE HISTORY & PHYSICAL IDENTIFYING DATA Eduardo Stoddard is 23 year old, /White, 39w0d, female with DONTAE 03/23/2024, Alternate DONTAE Entry. : 2000 Primary Care Physician: PATIENT DOES NOT HAVE A PCP CHIEF COMPLAINT Induction at 39 wks HISTORY OF PRESENT ILLNESS Eduardo Stoddard is a 23 year old female @ 39w0d +FM. No VB, LOF. + CTX. No pre-eclampsia sx or other complaints. PAST OBSTETRIC HISTORY OB History Para Term AB Living 2 1 SAB IAB Ectopic Multiple Live Births 1 # Outcome Date GA Lbr Kobi/2nd Weight Sex Delivery Anes PTL Lv 2 Current 1 SAB 03/2023 PAST MEDICAL HISTORY Problem list: Patient Active Problem List Diagnosis Date Noted 39 weeks gestation of 03/15/2024 Elevated BP without diagnosis of hypertension 03/01/2024 Normal in third trimester 01/25/2024 Uterine size-date discrepancy in third trimester 01/25/2024 Excessive weight gain during in third trimester 01/25/2024 Yoakum Hick's contraction 01/25/2024 Incomplete rectal prolapse 06/23/2022 History of chronic constipation 06/23/2022 Operations: No past surgical history on file. Past Medical History: Diagnosis Date Rectocele 2020 CURRENT HEALTH STATUS Medications: Current Facility-Administered Medications Medication Dose Route Frequency Last Rate Last Admin carboprost (HEMABATE) injection 250 mcg 250 mcg Intramuscular Q2HPRN D5W-LR IV infusion 1,000 mL 1,000 mL IV Infusion TITRATE 125 mL/hr at 03/16/24 0130 1,000 mL at 03/16/24 0130 FENTanyl PF (SUBLIMAZE (PF)) injection 100 mcg 100 mcg Slow IV Push Q1HPRN 100 mcg at 03/16/24 0609 lactated ringers IV infusion 500 mL 500 mL IV Infusion ONCE Held at 03/16/24 0045 lactated ringers IV infusion 500 mL 500 mL IV Infusion PRN - SEE INSTRUCTIONS lactated ringers IV infusion 500 mL 500 mL IV Infusion PRN - SEE INSTRUCTIONS lidocaine 1% (PF) (XYLOCAINE) injection 0.3 mL 0.3 mL Infiltration PRN - SEE INSTRUCTIONS methylergonovine (METHERGINE) injection 0.2 mg 0.2 mg Intramuscular Q4HPRN misoprostol (CYTOTEC) quarter-tablet 25 mcg 25 mcg Vaginal Q4H ABX 25 mcg at 03/16/24 0126 miSOPROStoL (CYTOTEC) tablet 200 mcg 200 mcg Rectal PRN oxytocin (PITOCIN) 30 units in NS 500 mL IV infusion 600 mL/hr IV Infusion PRN proMETHazine (PHENERGAN) 25 mg in NS 50 mL IV piggyback (CNR) 25 mg IV Piggyback Q4HPRN sodium citrate-citric acid (BICITRA) 500-334 mg/5 mL solution 30 mL 30 mL Oral PRE-PROCEDURE ONCE sodium citrate-citric acid (BICITRA) 500-334 mg/5 mL solution 30 mL 30 mL Oral PRE-PROCEDURE ONCE terbutaline (BRETHINE) injection 0.25 mg 0.25 mg Subcutaneous PRN tranexamic acid (CYKLOKAPRON) 1,000 mg in NaCl 0.9% (NS) 250 mL piggyback 1,000 mg IV Piggyback PRN Allergies and drug reactions: Penicillin HOME MEDICATIONS Medications Prior to Admission Medication Sig Dispense Refill Last Dose bisacodyL (DULCOLAX, BISACODYL,) 5 mg EC tablet Take 2 tablets by mouth once daily as needed for Constipation. 30 tablet 1 Not Taking PNV 11-Iron Fum-Folic Acid-OM3 28 mg iron-1 mg -200 mg Cap Take by mouth. Taking SOCIAL HISTORY Tobacco History: Social History Tobacco Use Smoking Status Never Smokeless Tobacco Never Drug History: Social History Substance and Sexual Activity Drug Use Never Alcohol History: Social History Substance and Sexual Activity Alcohol Use Not Currently FAMILY HISTORY No family history on file. REVIEW OF SYSTEMS General: negative Constitutional: negative Eyes: negative ENT/Mouth: negative Cardiovascular: negative Respiratory: negative Gastrointestinal:negative Genitourinary: negative Musculoskeletal: negative Skin/breast: negative Neurological: negative Psychiatric: negative Endocrine: negative Hemat/Lymph: negative Allergic/Immuno:none VITAL SIGNS BP: (111-143)/(73-94) Temp: [36.3 ?C (97.4 ?F)-36.6 ?C (97.8 ?F)] Temp source: Temporal Artery (03/16 0530) Pulse: [78-113] Resp: [18] SpO2: [98 %-100 %] Height: [170.2 cm (5' 7")] Weight: [83.8 kg (184 lb 12.8 oz)-84.6 kg (186 lb 6.4 oz)] BMI (calculated): [28.94-29.19] PHYSICAL EXAMINATIONS Gen: alert and oriented, well appearing, no distress CV: RRR, normal S1/S2, no m/r/g Resp: normal work of breathing, lungs CTAB Abd: gravid, soft, NTTP Ext: no calf tenderness or edema : SVE /3 REVIEW OF LABORATORY, PATHOLOGY, AND RADIOLOGY DATA Lab results: Type & Screen HIV Hep B Syphilis Chlamydia ABO & RH Date Value Ref Range Status 03/16/2024 O POSITIVE Final No results found for: "HIVMULTIPLEX" No components found for: "HBSHBSAG" No results found for: "SYPIGG" C. trachomatis Nucleic Acid Date Value Ref Range Status 02/23/2024 Negative Negative Final IAT Date Value Ref Range Status 03/16/2024 Negative Final Varicella Rubella Glucose Group B Strep CBC No results found for: "VZVIGG" No results found for: "RUBG" No results found for: "VUVJ7FL" No results found for: "CGBS" HGB Date Value Ref Range Status 03/15/2024 12.6 11.6 - 15.0 g/dL Final HCT Date Value Ref Range Status 03/15/2024 37.2 35.7 - 45.2 % Final PLT Date Value Ref Range Status 03/15/2024 190 166 - 358 10*3/?L Final Active Hospital Problems Diagnosis Date Noted 39 weeks gestation of 03/15/2024 Normal in third trimester 01/25/2024 Resolved Hospital Problems No resolved problems to display. Present on Admission: Normal in third trimester Placenta Accreta Screening Prior ? : No Prior Uterine Surgery?: No Placenta low lying/previa in current ? : No Screening outcome: A positive screening outcome indicates a history of prior delivery or prior uterine surgery, AND the presence of either a placenta low lying/previa or ultrasound suspicion of PASD in the current . Negative screening. ASSESSMENT AND PLAN Eduardo Stoddard is a 23 year old female @ 39w0d here for an elective induction. Induction - FB in placed. Misoprostol for cervical ripening - Cephalic presentation confirmed - GBS neg - Fabrizio EFW < 4500 grams Elevated BPs without dx of HTN - will send tox labs if persist PVT of Dr. Hunt, please see OB Summary for more details Laura Hunt MD 03/16/2024 6:18 AM [facility] Procedure Notes Date/Time Note Provider Source 2024-03-16 10:29:50 Associated Order(s): Central Neuraxial Block Central Neuraxial Block Date/Time: 03/16/2024 10:29 AM Performed by: Live Sigala CRNA Authorized by: Nava Martinez MD Patient Location: OB Reason for Block: OB request, Patient request, Labor analgesia, Surgical anesthesia and Post-op pain management Staff: Anesthesiologist: Nava Martinez MD Resident/VICE PRESIDENT OF PRODUCT MARKETING: Live Sigala CRNA Performed by: resident/VICE PRESIDENT OF PRODUCT MARKETING Preanesthetic Checklist: patient identified, IV checked, risks and benefits explained, monitors and equipment checked, timeout performed, pre-op evaluation, site marked and anesthesia consent Procedure: Type of Neuraxial: Epidural Epidural Description: 1st attempt Sterility Prep cap, drape, gloves, hand hygiene and mask Sedation Level no sedation Patient Position: sitting Prep: Betadine and patient draped Monitoring: heart rate, continuous pulse ox, heart rate / toco and NIBP Location: lumbar (1-5) Lumbar: L3-L4 Approach: midline Technique: LOC air and catheter Guidance with: landmark technique} Epidural/Spinal [facility] and/or Catheter: Epidural/Spinal Kit: Bobby Needle Type: Tuohy Needle Gauge: 17 G Needle Length: 3.5 in (8.89 cm) Needle Insertion Depth: 5 Catheter Type: multiport Catheter Size: 19 G Catheter at Skin Depth: 11 Number of Attempts: 1 Test Dose: lidocaine 1.5% with epinephrine 1-to-200,000 and negative Dose: 3 cc Catheter Securement Method: surgical tape and Tegaderm Assessment: Sensory Level: above T10 Block Outcome: successful block, no apparent complications, pain relieved, patient tolerated procedure well, patient satisfied, patient comfortable, positive pain relief, appropriate motor block, appropriate sensory block, pain improved and a full evaluation is pending Procedure Assessment: patient tolerated procedure well with no complications Notes: Smooth and atraumatic, (+) Local, (+) STF NACR-NURSE MANAGEMENT SUPERVISOR,CERTIFIED REGISTERED NURSE MANAGEMENT SUPERVISOR [facility] 2024-03-16 06:19:54 Procedure(s): INSERT CERVICAL DILATOR Pre-Procedure Diagnose(s): 39 weeks gestation of Post-Procedure Diagnose(s): 39 weeks gestation of Coleman bulb inserted in a sterile manner and inflated with 60 cc of normal saline without complications. Patient tolerated the procedure well. Laura Hunt MD #[id number] 03/16/2024 6:20 AM [facility]
[2024-12-08] MEDS ORDERED: LIDOCAINE VISCOUS 2% 10ML ORAL SOLN ONE (01:09)
[2024-12-08 01:10] LABS: Absolute Eosinophils 0.1 K/uL (0-0.5); Absolute Lymphocytes (CBC) 1.1 K/uL (0.7-4.9); Absolute Monocytes 0.8 K/uL (0.1-1.3); Absolute Neutrophil 6.4 K/uL (1.8-8.0); Basophils % 0.2 % (0-1.3); Eosinophils % 0.9 % (0-4.4); Hematocrit 41.7 % (36.0-45.0); Hemoglobin 14.3 g/dL (12.0-15.0); Lymphocytes % 13.6 % (15.3-44.8); MCH 29.8 pg (27.0-35.0); MCHC 34.2 g/dL (32.0-36.0); MPV 10.3 fL (7.6-11.3); Monocytes % 9.9 % (3.3-12.3); Neutrophils % 75.4 % (41.7-73.7); Platelets 166 thou/uL (152-406); RBC Red Blood Cell Count 4.79 M/uL (3.86-4.86); Red Cell Distribution Width 13.3 % (12.1-15.2)
[2024-12-08 01:31] LABS: Albumin 3.9 g/dL (3.4-5.0); Anion Gap 9.3 mEq/L (5.0-15.0); Bilirubin Total 0.5 mg/dL (0.2-1.0); Globulin 4.1 g/dL (2.3-3.5); Potassium 3.3 mEq/L (3.5-5.1)
[2024-12-08 01:52] LABS: Monoscreen NEG (NEG)
[2024-12-08] MEDS ORDERED: dexAMETHasone 10 MG/ML VIAL ONE (02:12)
[2024-12-08] MEDS ORDERED: POTASSIUM 25 MEQ EFFERV TAB ONE (02:12)
[2024-12-08] MEDS ORDERED: CEFTRIAXONE 1000 MG/VIAL ONE (02:36)
[2024-12-08] MEDS ORDERED: KETOROLAC 30 MG/ML INJ ONE (02:36)
[2024-12-08] MEDS ORDERED: HYDROCOD 2.5mg-ACETAMIN 108mg/5mL Soln ONE (02:55)
--- NOTE | 2024-12-08 03:18 | RAD REPORT ---
EXAM: CT Neck With Intravenous Contrast CLINICAL HISTORY: SORE THROAT TECHNIQUE: Axial computed tomography images of the neck with intravenous contrast. Sagittal and coronal reform atted images were created and reviewed. This CT exam was performed using one or more of the following dose reduction techniques: automated exposure control, adjustment of the mA and/or kV acc ording to patient size, and/or use of iterative reconstruction technique. COMPARISON: No relevant prior studies available. FINDINGS: Oropharynx: Prominence and hyperemia of the left greater than right palatine tonsils. No peritonsil lar abscess. Hypopharynx: Unremarkable. Larynx: Unremarkable. Normal epiglottis. Trachea: Unremarkable. Retropharyngeal space: Unremarkable. Submandibular/parotid glands: Unremarkable. Glands are normal in size. Thyroid: Unremarkable. No enlarged or calcified nodules. Bones/joints: No acute fracture. Soft tissues: Unremarkable. Vasculature: No acute findings. Lymph nodes: Left cervical chain lymph nodes measuring up to 13 mm in short axis. Lung apices: Unremarkable as visualized. IMPRESSION: Findings compatible with tonsillitis. No peritonsillar abscess. Electronically signed by: Deborah Warner MD 12/08/2024 03:01 AM [facility] Due to temporary technical issues with the PACS/ZQGame reporting system, reports are being nga d by the in-house radiologist without review as a courtesy to ensure prompt reporting the interpreting radiologist is fully responsible for the content of the report. Transcribed Date/Time: 12/08/2024 3:18 AM
--- NOTE | 2024-12-08 03:26 | ER ---
Nurse's Notes [facility] Name: Nan Stoddard Age: 24 yrs Sex: Female : 2000 Arrival Date: 12/07/2024 Time: 23:28 Bed 8 Private MD: Diagnosis: Acute tonsillitis, unspecified Presentation: 12/07 23:53 Chief complaint: Patient states: diagnosed with tonsillitis 2 days ago and started lg3 clindamycin. pain, swelling and purulent drainage worsening. Coronavirus screen: Client denies travel out of the [place] in the last 14 days. At this time, the client does not indicate any symptoms associated with coronavirus-19. Ebola Screen: No symptoms or risks identified at this time. Initial Sepsis Screen: Does the patient meet any 2 criteria? No. Patient's initial sepsis screen is negative. Does the patient have a suspected source of infection? No. Patient's initial sepsis screen is negative. Risk Assessment: Do you want to hurt yourself or someone else? Patient reports no desire to harm self or others. Onset of symptoms was December 04, 2024. 23:53 Method Of Arrival: Ambulatory lg3 23:53 Acuity: DARIEN 3 lg3 Triage Assessment: 23:56 General: Appears in no apparent distress. uncomfortable, Behavior is calm, cooperative. lg3 Pain: Complains of pain in throat. EENT: Throat is reddened has patchy exudate has enlarged tonsils. Neuro: No deficits noted. Knowles Agitation-Sedation Scale (RASS): 0 - Alert and Calm Level of Consciousness is awake, alert, obeys commands, Oriented to person, place, time, situation. Cardiovascular: No deficits noted. Denies chest pain, shortness of breath, Capillary refill < 3 seconds Clubbing of nail beds is absent JVD is absent Patient's skin is warm and dry. Respiratory: No deficits noted. Airway is patent Respiratory effort is even, unlabored, Respiratory pattern is regular, symmetrical. GI: No signs and/or symptoms were reported involving the gastrointestinal system. : No signs and/or symptoms were reported regarding the genitourinary system. Derm: No deficits noted. No signs and/or symptoms reported regarding the dermatologic system. Skin is intact, is healthy with good turgor, Skin is dry, Skin is normal, Skin temperature is warm. Musculoskeletal: No deficits noted. No signs and/or symptoms reported regarding the musculoskeletal system. Circulation, motion, and sensation intact. Range of motion: intact in all extremities. FIELD COUNSEL: 23:56 LMP N/A - , Not lg3 Historical: - Allergies: 23:56 PENICILLINS; lg3 - Home Meds: 23:56 None [Active]; lg3 - PMHx: 23:56 Hypertensive disorder; ; lg3 - PSHx: 23:56 None; lg3 - Immunization history:: Adult Immunizations up to date. - Infectious Disease History:: Denies. - Social history:: Smoking status: Reported history of juuling and/or vaping. Patient uses alcohol, occasionally. Patient/guardian denies using street drugs. Screenin/31 01:20 [facility] ED Fall Risk Assessment (Adult) History of falling in the last 3 months, al5 including since admission No falls in past 3 months (0 pts) Confusion or Disorientation No (0 pts) Intoxicated or Sedated No (0 pts) Impaired Gait No (0 pts) Mobility Assist Device Used No (0 pt) Altered Elimination No (0 pt) Score/Fall Risk Level 0 - 2 = Low Risk Oriented to surroundings, Educated pt \T\ family on fall prevention, incl call for assistance when getting out of bed, Hourly rounding (assess needs \T\ fall precautionary measures) done. Abuse screen: Denies threats or abuse. Denies injuries from another. Nutritional screening: No deficits noted. Tuberculosis screening: No symptoms or risk factors identified. Assessment: 01:21 General: Appears in no apparent distress. Behavior is calm, cooperative. Pain: al5 Complains of pain in throat. Neuro: Level of Consciousness is awake, alert, obeys commands, Oriented to person, place, time, situation. Cardiovascular: Capillary refill < 3 seconds Patient's skin is warm and dry. Respiratory: Airway is patent Respiratory effort is even, unlabored, Respiratory pattern is regular, symmetrical, Breath sounds are clear bilaterally. GI: No signs and/or symptoms were reported involving the gastrointestinal system. : No signs and/or symptoms were reported regarding the genitourinary system. EENT: Reports pain when swallowing. Derm: Skin is intact, is healthy with good turgor, Skin is pink, warm \T\ dry. normal. Musculoskeletal: No signs and/or symptoms reported regarding the musculoskeletal system. 03:00 Reassessment: Patient appears in no apparent distress at this time. No changes from al5 previously documented assessment. Patient and/or family updated on plan of care and expected duration. Pain level reassessed. Patient is alert, oriented x 3, equal unlabored respirations, skin warm/dry/pink. 03:47 Reassessment: Patient appears in no apparent distress at this time. No changes from al5 previously documented assessment. Patient and/or family updated on plan of care and expected duration. Pain level reassessed. Patient is alert, oriented x 3, equal unlabored respirations, skin warm/dry/pink. 12:14 Reassessment: Received call from pt, stating she did not receive physical aa5 prescriptions, prescriptions were called in to pt's preferred pharmacy, [facility] in [place], [place]. . Vital Signs: 12/07 23:53 BP 127 / 97; Pulse 101; Resp 16 S; Temp 98.6(O); Pulse Ox 100% on R/A; Weight 72.57 kg lg3 (R); Height 5 ft. 7 in. (R); Pain 7/10; 12/08 01:22 BP 128 / 88; Pulse 103; Resp 16; Pulse Ox 100% on R/A; al5 03:47 BP 125 / 81; Pulse 98; Resp 18; Pulse Ox 100% on R/A; al5 12/07 23:53 Body Mass Index 25.06 (72.57 kg, 170.18 cm) lg3 12/07 23:53 Pain Scale: Adult lg3 ED Course: 12/07 23:34 Patient arrived in ED. jj6 23:35 Dara Abad PA-C is PHCP. sb4 23:35 Dl Franklin MD is Attending Physician. sb4 23:56 Triage completed. lg3 23:56 Arm band placed on right wrist. lg3 12/08 01:00 Ritu Alvarado, IMMANUEL is Primary Nurse. al5 01:20 Patient has correct armband on for positive identification. Bed in low position. Call al5 light in reach. Side rails up X2. Provided Education on: plan of care. 01:20 No provider procedures requiring assistance completed. Inserted saline lock: 20 gauge al5 in right antecubital area, using aseptic technique. ,using aseptic technique. done by ana lilia Blood collected. Flushed with 10 mL NS. 01:21 PHCP role handed off by Dara Abad PA-C cp 01:21 Dl Ireland PA is PHCP. cp 01:55 CT Soft Tissue Neck W/contr In Process Unspecified. EDMS 03:24 Destiny Mallory MD is Referral Physician. cp 03:47 IV discontinued, intact, bleeding controlled, No redness/swelling at site. Pressure al5 dressing applied. Administered Medications: 01:16 Drug: Viscous Lidocaine Mucous Membrane Liquid (4 %) 5 ml Mucous Membrane once {Note: al5 lidocaine 4% viscous unavailable, lidocaine 2% viscous given.} Route: Mucous Membrane; 02:20 Follow up: Response: No adverse reaction; No change in condition al5 02:19 Drug: Potassium PO Effervescent Tablet 50 mEq PO once; dissolve in 4 ounces of water or al5 juice Route: PO; 02:43 Follow up: Response: No adverse reaction al5 02:20 Not Given (Patient Refused): [id number] mg IVP once al5 02:42 Drug: Rocephin IV 1 grams IV at calculated rate once; Given slow IV push per pharmacy al5 instructions Route: IV; Rate: calculated rate; Site: right antecubital; 03:46 Follow up: Response: No adverse reaction; IV Status: Completed infusion; IV Intake: [id number] 02:43 Drug: Ketorolac IVP 15 mg IVP once Route: IVP; Site: right antecubital; al5 03:46 Follow up: Response: No adverse reaction; No change in condition al5 02:59 Drug: Lortab PO Liquid 15 ml PO once Route: PO; al5 03:46 Follow up: Response: No adverse reaction; No change in condition al5 03:46 Drug: AZITHromycin PO 250 mg PO once Route: PO; al5 03:47 Follow up: Response: No adverse reaction; Medication administered at discharge. al5 Medication: 01:20 VIS not applicable for this client. al5 Intake: 03:46 IV: 10ml; Total: 10ml. al5 Outcome: 03:25 Discharge ordered by . cp 03:47 Discharged to home ambulatory, with significant other, al5 03:47 Condition: stable 03:47 Discharge instructions given to patient, Instructed on discharge instructions, follow up and referral plans. medication usage, Demonstrated understanding of instructions, follow-up care, medications, Prescriptions given X 3, 03:48 Patient left the ED. al5 Signatures: Dispatcher [employer] EDMS Rashida Harmon, RN RN aa5 Dl Ireland PA PA cp Able, Lacie, RN RN lg3 Temi Weinberg Sophia, PA-C PA-C sb4 Ritu Alvarado RN RN al5
--- NOTE | 2024-12-08 03:26 | EDPHYS ---
Physician Documentation [facility] Name: Nan Stoddard Age: 24 yrs Sex: Female : 2000 Arrival Date: 12/07/2024 Time: 23:28 Bed 8 Private MD: TINO Physician Dl Franklin HPI: 12/08 01:04 This 24 yrs old Female presents to ER via Ambulatory with complaints of Sore Throat, sb4 Swollen Glands. 01:04 Patient reports sore throat and painful swallowing x 3 days. She was seen by primary sb4 care 2 days ago and started on clindamycin. She states that her pain has gotten worse and her left tonsil has only gotten larger. States that she is seeing more exudates on her left tonsil and they are now spreading to her right. She does report prior episodes of tonsillitis, but not to this degree. She denies any fever. 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 - Infectious Disease History:: Denies. - Social history:: Smoking status: Reported history of juuling and/or vaping. Patient uses alcohol, occasionally. Patient/guardian denies using street drugs. ROS: 12/08 01:04 Constitutional: Negative for fever, chills, and weight loss, sb4 ENT: Positive for sore throat, All other systems are negative, Exam: 01:04 Head/Face: Normocephalic, atraumatic. Eyes: Extra-ocular motions intact. Periorbital sb4 areas with no swelling, redness, or edema. Cardiovascular: Regular rate and rhythm with a normal S1 and S2. Respiratory: No increased work of breathing, no retractions or nasal flaring. Abdomen/GI: Soft, non-tender, no distension. Skin: Warm, dry with normal turgor. Normal color with no rashes, no lesions, and no evidence of cellulitis. 01:04 Constitutional: The patient appears alert, awake, uncomfortable, 01:04 ENT: Posterior pharynx: Tonsils: enlarged on the left, with erythema, with exudate, no ulcerations, Vital Signs: 12/07 23:53 BP 127 / 97; Pulse 101; Resp 16 S; Temp 98.6(O); Pulse Ox 100% on R/A; Weight 72.57 kg lg3 (R); Height 5 ft. 7 in. (R); Pain 7/10; 12/08 01:22 BP 128 / 88; Pulse 103; Resp 16; Pulse Ox 100% on R/A; al5 03:47 BP 125 / 81; Pulse 98; Resp 18; Pulse Ox 100% on R/A; al5 12/07 23:53 Body Mass Index 25.06 (72.57 kg, 170.18 cm) lg3 12/07 23:53 Pain Scale: Adult lg3 MDM: 12/07 23:36 Medical Screening Exam initiated sb4 12/08 01:17 Transition of care: After a detail discussion of the patient's case, care is sb4 transferred to Dl CASTANON. 03:22 Data reviewed: vital signs, nurses notes, lab test result(s), radiologic studies, CT cp scan. I considered the following discharge prescriptions or medication management in the emergency department Medications were administered in the Emergency Department. See MAR. Care significantly affected by the following chronic conditions: Hypertension. Counseling: I had a detailed discussion with the patient and/or guardian regarding the historical points, exam findings, and any diagnostic results supporting the discharge/admit diagnosis, lab results, radiology results, to return to the emergency department if symptoms worsen or persist or if there are any questions or concerns that arise at home. ED course: CT report results CT Neck with contrast: Findings compatible with tonsillitis. No peritonsillar abscess. VSS. Pain improved. Patient declined IV Dexamethasone due to infant. Will have patient stop clindamycin and start oral Biaxin. 12/07 23:46 Order name: CBC with Diff; Complete Time: 01:41 sb4 12/08 01:41 Interpretation: Normal except: SHAHAB% 75.4; LYM% 13.6. cp 12/07 23:46 Order name: CMP; Complete Time: 01:41 sb4 12/08 01:41 Interpretation: Normal except: K 3.3; ALK 118; GLOB 4.1; A/G 1.0. cp 12/07 23:46 Order name: Test, Serum; Complete Time: 01:41 sb4 12/08 01:42 Order name: Villalba Screen Profile; Complete Time: 02:21 cp 12/08 02:22 Interpretation: Reviewed. cp 12/07 23:46 Order name: CT Soft Tissue Neck W/contr; Complete Time: 13:37 sb4 12/07 23:46 Order name: IV Saline Lock; Complete Time: 01:04 sb4 12/07 23:46 Order name: Labs collected and sent; Complete Time: 01:04 sb4 Administered Medications: 01:16 Drug: Viscous Lidocaine Mucous Membrane Liquid (4 %) 5 ml Mucous Membrane once {Note: al5 lidocaine 4% viscous unavailable, lidocaine 2% viscous given.} Route: Mucous Membrane; 02:20 Follow up: Response: No adverse reaction; No change in condition al5 02:19 Drug: Potassium PO Effervescent Tablet 50 mEq PO once; dissolve in 4 ounces of water or al5 juice Route: PO; 02:43 Follow up: Response: No adverse reaction al5 02:20 Not Given (Patient Refused): [id number] mg IVP once al5 02:42 Drug: Rocephin IV 1 grams IV at calculated rate once; Given slow IV push per pharmacy al5 instructions Route: IV; Rate: calculated rate; Site: right antecubital; 03:46 Follow up: Response: No adverse reaction; IV Status: Completed infusion; IV Intake: [id number] 02:43 Drug: Ketorolac IVP 15 mg IVP once Route: IVP; Site: right antecubital; al5 03:46 Follow up: Response: No adverse reaction; No change in condition al5 02:59 Drug: Lortab PO Liquid 15 ml PO once Route: PO; al5 03:46 Follow up: Response: No adverse reaction; No change in condition al5 03:46 Drug: AZITHromycin PO 250 mg PO once Route: PO; al5 03:47 Follow up: Response: No adverse reaction; Medication administered at discharge. al5 Disposition: 13:00 Co-signature as Attending Physician, Dl Franklin MD I agree with the assessment and drea plan of care. Disposition Summary: 12/08/24 03:25 Discharge Ordered Notes: Location: Home cp Problem: new cp Symptoms: have improved cp Condition: Stable cp Diagnosis - Acute tonsillitis, unspecified cp Followup: cp - With: Destiny Mallory MD - When: 2 - 3 days - Reason: Recheck today's complaints Discharge Instructions: - Discharge Summary Sheet cp - Tonsillitis cp Forms: - Medication Reconciliation Form cp - Antibiotic Education cp - Prescription Opioid Use cp - Patient Portal Instructions cp - Leadership Thank You Letter cp Prescriptions: - clarithromycin 500 mg Oral tablet - take 1 tablet ORAL route every 12 hours for 10 days; 20 tablet; Refills: 0, cp Product Selection Permitted - Lidocaine Viscous - take 5 milliliter ORAL route every 4-6 hours As needed; 1 unit; Refills: 0, cp Product Selection Permitted - Ibuprofen 800 mg Oral Tablet - take 1 tablet ORAL route every 8 hours As needed take with food; 30 tablet; cp Refills: 0, Product Selection Permitted Signatures: Dispatcher [employer] EDMS Dl Franklin MD MD cha Page, Corey, PA PA cp Able, Lacie, RN RN lg3 Dara Abad PA-C PAAidan sb4 Ritu Alvarado RN RN al5 Corrections: (The following items were deleted from the chart) 12/07 23:47 23:47 Soft Tissue Neck W/Contr+CT.RAD.BRZ ordered. EDMS EDMS
[2024-12-08] MEDS ORDERED: AZITHROMYCIN 250 MG TAB ONE (03:40)
[2024-12-08 10:00] VITALS: TEMP 98.6; O2SAT 100
[2024-12-08 10:02] VITALS: BP 125/81
== END 2024-12-08 03:48 | disposition home or self-care (01) ==
LOC: ER 23:28
DX: J03.90 Acute tonsillitis, unspecified (principal)
CPT/HCPCS: 96365; 85025; 36415; 86308; 84703; 80053; 70491; 96375; 99284; Q9967; J0696; J1100

== ENCOUNTER 2024-12-09 19:19 | Emergency (ER) | payer OTHER ==
--- OUTSIDE RECORDS SUMMARY | 2024-12-09 19:22 | XMS REPORT | Continuity of Care Document ---
Author Name Unknown Address [address] [facility] [address] [place] [address] [facility] thconnect Address [address] [facility] [address] [place] [address] Care Team Providers Care Supervisor Rubber Covering Name Role Phone Pcp, Patient Does Not Have A Primary Care Physic greta JONO UNDERWOOD Attending Clinician UnavailJono Bangura Attending Clinician [phone] Unknown, Attending Attending Clinician Unavailab britt 2, [facility] Attending Clinician Unavailable Laura Hunt MD Attending Clinician [phone] LAURA HUNT Attending Clinician Unavailable LAURA HUNT Attending Clinician Unavailable KAMINI CONWAY Attending Clinician Unavailable Kamini Chino Attending Clinician [phone] Unknown, Attending Attending Clinician Unavailab de la torre Nurse, [facility] Attending Clinician Un available Live Sigala CRNA Attending Clinician [phone] Eileen Sainz MD Attending Clinician [phone] Pob, [facility] Main Attending Clinician Unavailabl e 2, [facility] Attending Clinician Unavailable STEPHANIE TODD Attending Clinician Unav ailable Ultrasound, Ang-Mfm Attending Clinician Unavaila ble Stephanie Todd MD Attending Clinician + Doctor Unassigned, [place] Attending Clinician U navailable [email or web address] Attending Clinician Unavaila mp IGNACIONICOLEMIRIAN Attending Clinician Unavailable Cristóbal MCCARTNEY, Luisito Attending Clinician [phone] LUISITO SEGAL Attending Clinician Unavaila mp HUNT, LAURA CORONADO Admitting Clinician Unavailable Carrington PUGH, Laura Coronado Admitting Clinician [phone] [email or web address] Admitting Clinician Unavaila mp Payers Payer Name Policy Type Policy Number Effective Date Expirati on Date Source [id number] 2024 00:00:00 Problems Condition Name Condition Details Condition Category Status Onset Date Resolution Date Last Treatment Date Treating Clinician Comments Source History of pre-eclamp lali History of pre-eclamp alli Disease Active 6-13 00:00: 00 [facility] Incomplete rectal prolapse Incomplete rectal prolapse Disease Active 8- 00:00: 00 [facility] History of chronic constipati on History of chronic constipati on Disease Active 8-16 00:00: 00 [facility] Depression Depression Disease Active 9-10 00:00: 00 [facility] Liveborn infant, of alas , born in hospital by vaginal delivery Liveborn , of alas , born in hospital by vaginal delivery Disease Resolve d 5-09 00:00: 00 2024-04-20 00:00:00 2024-04-20 13:10:57 [facility] Mild pre-eclamp alli in third trimester Mild pre-eclamp alli in third trimester Disease Resolve d 0 5-09 00:00: 00 2024-04-20 00:00:00 2024-04-20 13:10:57 [facility] 39 weeks gestation of 39 weeks gestation of Disease Resolve d 0 5-08 00:00: 00 2024-04-20 00:00:00 2024-04-20 13:10:57 [facility] Elevated BP without diagnosis of hypertensi on Elevated BP without diagnosis of hypertensi on Disease Resolve d 0 4-24 00:00: 00 2024-04-20 00:00:00 2024-04-20 14:28:55 [facility] Normal in third trimester Normal in third trimester Disease Resolve d 01-24 00:00: 00 2024-04-20 00:00:00 2024-04-20 14:28:52 [facility] Uterine size-date discrepanc y in third trimester Uterine size-date discrepanc y in third trimester Disease Resolve d 01-24 00:00: 00 2024-04-20 00:00:00 2024-04-20 14:28:49 [facility] Excessive weight gain during in third trimester Excessive weight gain during in third trimester Disease Resolve d 01-24 00:00: 00 2024-04-20 00:00:00 2024-04-20 14:28:54 [facility] Gilbert Hick's contractio n Gilbert Hick's contractio n Disease Resolve d 01-24 00:00: 00 2024-04-20 00:00:00 2024-04-20 14:28:50 [facility] Routine gynecologi valentino examinatio n Routine gynecologi valentino examinatio n Disease Resolve d 8- 00:00: 00 2024-01-25 00:00:00 2024-01-25 21:44:56 [facility] Cervical cancer screening Cervical cancer screening Disease Resolve d 8- 00:00: 00 2024-01-25 00:00:00 2024-01-25 21:45:00 [facility] Need for vaccinatio n Need for vaccinatio n Disease Resolve d 8-16 00:00: 00 2024-01-25 00:00:00 2024-01-25 21:45:04 [facility] Allergies, Adverse Reactions, Alerts Allergy Name Allergy Type Status Severity Reaction(s) Onset Date Inactive Date Treating Clinician Comments Source Penicill in Propensi ty to adverse reaction s Active Anaphylaxis 01-24 00:00: 00 [facility] PENICILL IN DRUG INGREDI Active Anaphylaxis 319 00:00: 00 [facility] Penicill ins Propensi ty to adverse reaction s to drug Active Unknown - See comments 05-31 00:00: 00 [facility] states allergic to PCN and that is why she does not take it. [facility] PENICILL INS Drug Class Active Unknown-Cmnt 05-31 00:00: 00 [facility] NO KNOWN ALLERGIE S Drug Class Active [facility] Social History Social Habit Start Date Stop Date Quantity Comments Source ASSERTION 2023-07-01 00:00:00 [facility] intake 2024-08-02 00:00:00 2024-08-02 00:00:00 Ex-drinker (finding) [facility] Tobacco use and exposure 2024-03-17 00:00:00 2024-03-17 00:00:00 Smokeless tobacco non-user [facility] Alcohol intake 2024-03-08 00:00:00 2024-03-08 00:00:00 Ex-drinker (finding) [facility] Exposure to SARS-CoV-2 (event) 2022-06-13 00:00:00 2022-06-23 09:43:00 Not sure [facility] History of Social function 2022-06-23 00:00:00 2022-06-23 00:00:00 [facility] Sex assigned at 2000 00:00:00 2000 00:00:00 [facility] Smoking Status Start Date Stop Date Source Never smoked tobacco [facility] Medications Ordered Medication Name Filled Medication Name Start Date Stop Date Current Medication? Ordering Clinician Indication Dosage Frequency Signature (SIG) Comments Components Source chlorhexidi ne 0.12 % mouthwash 12-06 00:00: 00 Yes [id number] 15mL Swish and spit out 15 mL in the morning and 15 mL in the evening. [facility] clindamycin 300 mg capsule 12-06 00:00: 00 12-14 05:59 :00 Yes [id number] 300mg Take 1 capsule by mouth 4 (four) times daily for 7 days. [facility] sulfamethox azole-trime thoprim (BACTRIM DS) 800-160 mg per tablet 05-22 00:00: 00 05-30 04:59 :00 No [id number] 1{tbl} Take 1 tablet by mouth in the morning and 1 tablet in the evening. Do all this for 7 days. [facility] vitamin w/FA tablet 03-17 00:00: 00 04-20 00:00 :00 No [id number] 1{tbl} Take 1 tablet by mouth in the morning. [facility] docusate 100 mg capsule 03-17 00:00: 00 04-20 00:00 :00 No [id number] 200mg Take 2 capsules by mouth once daily as needed for Constipati on. [facility] ferrous sulfate 325 mg (65 mg iron) tablet 03-17 00:00: 00 04-20 00:00 :00 No [id number] 325mg Take 1 tablet by mouth in the morning. [facility] ibuprofen 800 mg tablet 03-17 00:00: 00 04-20 00:00 :00 No [id number] 800mg Take 1 tablet by mouth every 8 (eight) hours as needed (pain). Take with food or milk. [facility] rho(D) immune globulin (HYPERRHO/R HOGAM) syringe 300 mcg 03-16 22:40: 31 Yes 300ug [facility] HYDROcodone -acetaminop hen (NORCO 5) 5-325 mg tablet 1 tablet 03-16 22:40: 28 Yes 1{tbl} [facility] ibuprofen (IBU) tablet 600 mg 03-16 22:40: 28 Yes 600mg 600 mg, Oral, Q6HPRN, Starting on Krissy 03/16/24 at 1740, Until Discontinu ed, Routine, Pain (scale 4-6) [facility] acetaminoph en (TYLENOL) tablet 650 mg 03-16 22:40: 28 Yes 650mg [facility] diphenhydrA MINE (BENADRYL) tablet 25 mg 03-16 22:40: 28 Yes 25mg [facility] ondansetron (ZOFRAN (PF)) injection 4 mg 03-16 22:40: 28 Yes 4mg [facility] simethicone (GAS RELIEF (SIMETHICON E)) chewable tablet 160 mg 03-16 22:40: 28 Yes 160mg [facility] docusate (COLACE) capsule 200 mg 03-16 22:40: 28 Yes 200mg [facility] magnesium hydroxide (MILK OF MAGNESIA) 400 mg/5 mL suspension 30 mL 03-16 22:40: 28 Yes 30mL [facility] benzocaine- menthol (DERMOPLAST ) 20-0.5 % topical spray 03-16 22:40: 27 Yes Topical, PRN, Starting on Wed03/16/24 at 1740, Until Discontinu ed, Routine, Perineum discomfort [facility] witch Silvano (TUCKS) 50 % topical pad 03-16 22:40: 18 Yes Topical, Q4HPRN, Starting on Wed03/16/24 at 1740, Until Discontinu ed, Routine, rectal/hem orrhoidal pain [facility] oxytocin (PITOCIN) 30 units in NS 500 mL IV infusion 03-16 17:45: 00 03-17 16:23 :09 No 2mU/min at 2-40 mL/hr, IV Infusion, TITRATE, Starting on Wed03/16/24 at 1245, Until Wed03/17/24 at 1123, RENATE [facility] PIB fentaNYL-ro pivacaine 2 mcg/mL-0.1 % (PF) in NS 200 mL epidural infusion RTU 03-16 15:12: 00 03-17 03:52 :38 No Epidural, ONCE INTRA PROCEDURE, Starting on Wed03/16/24 at 1012, Until Krissy 03/16/24 at 2252, Routine, Intra-op Univers [facility] lidocaine-e pinephrine (XYLOCAINE W/EPINEPHRI NE) 1.5 %-1:200,000 injection 03-16 15:11: 00 03-17 03:52 :38 No Epidural, ONCE INTRA PROCEDURE, Starting on Krissy 03/16/24 at 1011, Until Krissy 03/16/24 at 2252, Routine, Intra-op [facility] lidocaine 1% (XYLOCAINE) 100 mg/10 mL (1 %) injection 03-16 15:06: 00 03-17 03:52 :38 No Infiltrati on, ONCE INTRA PROCEDURE, Starting on Krissy 03/16/24 at 1006, Until Krissy 03/16/24 at 2252, Routine, Intra-op [facility] misoprostol (CYTOTEC) quarter-tab let 25 mcg 03-16 05:45: 00 03-16 06:27 :00 No 25ug 25 mcg, Oral, ONCE, 1 dose, On Krissy 03/16/24 at 0045, [facility]ine [facility] quarter-tab let 25 mcg 03-16 05:34: 27 03-17 12:32 :57 No 25ug 25 mcg, Vaginal, Q4H ABX, First dose on Krissy 03/16/24 at 0045, Until Discontinu ed, Routine [facility] FENTanyl PF (SUBLIMAZE (PF)) injection 100 mcg 03-16 05:34: 27 03-17 16:23 :09 No 100ug 100 mcg, Slow IV Push, Q1HPRN, Starting on Krissy 03/16/24 at 0034, Until Wed03/17/24 at 1123, Routine, contractio n pain without an epidural and SVE < 8 cm and Cat I strip [facility] lact[facility]ers IV infusion 500 mL 03-16 05:34: 27 03-17 16:22 :55 No 500mL at 999 mL/hr, 500 mL, IV Infusion, PRN - SEE INSTRUCTIO NS, Starting on Krissy 03/16/24 at 0034, Until Wed03/17/24 at 1122, Routine [facility] D5W-LR IV infusion 1,000 mL 03-16 05:34: 27 03-17 16:22 :55 No 1000mL at 1-125 mL/hr, IV Infusion, TITRATE, Starting on Krissy 03/16/24 at 0034, Until Wed03/17/24 at 1122, Routine [facility] oxytocin (PITOCIN) 30 units in NS 500 mL IV infusion 03-16 05:34: 27 03-16 21:39 :00 No 600mL/h 600 mL/hr, IV Infusion, PRN, PPH, Starting on Krissy 03/16/24 at 0034, For 1 dose, As instructed by physician at bedside. [facility] PNV 11-Iron Fum-Folic Acid-OM3 28 mg iron-1 mg -200 mg Cap 01-24 14:47: 00 03-17 00:00 :00 No Take by mouth. [facility] bisacodyL (DULCOLAX, BISACODYL,) 5 mg EC tablet 01-24 00:00: 00 03-17 00:00 :00 No [id number] 10mg Take 2 tablets by mouth once daily as needed for Constipati on. [facility] No known medications 8-16 11:00: 39 No No known medication s [facility] Immunizations Ordered Immunization Name Filled Immunization Name Date Status Comments Source TDAP (ADACEL) VACCINE 2013-06-08 00:00:00 Completed TDAP (ADACEL) VACCINE Unknown Completed [facility] TDAP (ADACEL) VACCINE Unknown Completed [facility] TDAP (ADACEL) VACCINE Unknown Completed [facility] TDAP (ADACEL) VACCINE Unknown Completed [facility] Vital Signs Vital Name Observation Time Observation Value Comments S devora Systolic blood pressure 2024-12-06 18:30:00 120 mm[Hg] [facility] hospital Diastolic blood pressure 2024-12-06 18:30:00 88 mm[Hg] [facility] acute hospital Heart rate 2024-12-06 18:30:00 110 /min [facility] Body temperature 2024-12-06 18:30:00 37.17 Lucie [facility] Respiratory rate 2024-12-06 18:30:00 18 /min [facility] Body weight 2024-12-06 18:30:00 72.893 kg [facility] BMI 2024-12-06 18:30:00 25.17 kg/m2 [facility] Oxygen saturation in Arterial blood by Pulse oximetry 2024-12-06 18:30:00 97 /min [facility] acute hospital Body height 2024-08-02 18:06:00 170.2 cm [facility] Body weight 2024-08-02 18:06:00 70.67 kg [facility] BMI 2024-08-02 18:06:00 24.40 kg/m2 [facility] Systolic blood pressure 2024-08-02 18:06:00 114 mm[Hg] [facility] acute hospital Diastolic blood pressure 2024-08-02 18:06:00 79 mm[Hg] [facility] acute hospital Heart rate 2024-08-02 18:06:00 89 /min [facility] Body temperature 2024-08-02 18:06:00 36.72 Lucie [facility] Respiratory rate 2024-08-02 18:06:00 16 /min [facility] Systolic blood pressure 2024-05-23 01:09:00 121 mm[Hg] General acute hospital Diastolic blood pressure 2024-05-23 01:09:00 83 mm[Hg] General acute hospital Heart rate 2024-05-23 01:09:00 94 /min [facility] Body temperature 2024-05-23 01:09:00 37.11 Lucie [facility] Respiratory rate 2024-05-23 01:09:00 17 /min [facility] Body weight 2024-05-23 01:09:00 71.079 kg [facility] BMI 2024-05-23 01:09:00 24.54 kg/m2 [facility] Oxygen saturation in Arterial blood by Pulse oximetry 2024-05-23 01:09:00 98 /min [facility] Systolic blood pressure 2024-04-20 18:20:00 118 mm[Hg] [facility] acute hospital Diastolic blood pressure 2024-04-20 18:20:00 90 mm[Hg] [facility] hospital Body temperature 2024-04-20 18:20:00 35.89 Lucie [facility] Body height 2024-04-20 18:20:00 170.2 cm [facility] Body weight 2024-04-20 18:20:00 72.576 kg [facility] BMI 2024-04-20 18:20:00 25.06 kg/m2 [facility] Systolic blood pressure 2024-03-20 16:15:00 129 mm[Hg] [facility] acute hospital Diastolic blood pressure 2024-03-20 16:15:00 89 mm[Hg] [facility] acute hospital Heart rate 2024-03-20 16:15:00 99 /min [facility] Respiratory rate 2024-03-20 16:15:00 18 /min [facility] Body height 2024-03-20 16:15:00 170.2 cm [facility] Body weight 2024-03-20 16:15:00 77.565 kg [facility] BMI 2024-03-20 16:15:00 26.78 kg/m2 [facility] Systolic blood pressure 2024-03-17 18:00:00 118 mm[Hg] [facility] acute hospital Diastolic blood pressure 2024-03-17 18:00:00 72 mm[Hg] [facility] acute hospital Heart rate 2024-03-17 18:00:00 89 /min [facility] Body temperature 2024-03-17 18:00:00 36.89 Lucie [facility] Respiratory rate 2024-03-17 18:00:00 18 /min [facility] Oxygen saturation in Arterial blood by Pulse oximetry 2024-03-17 18:00:00 100 /min [facility] Body height 2024-03-16 05:36:00 170.2 cm [facility] Body weight 2024-03-16 05:36:00 84.55 kg [facility] BMI 2024-03-16 05:36:00 29.19 kg/m2 [facility] Systolic blood pressure 2024-03-15 16:09:00 119 mm[Hg] [facility] acute hospital Diastolic blood pressure 2024-03-15 16:09:00 75 mm[Hg] General acute hospital Heart rate 2024-03-15 16:08:00 113 /min [facility] Body temperature 2024-03-15 16:08:00 36.39 Lucie [facility] Body height 2024-03-15 16:08:00 170.2 cm [facility] Body weight 2024-03-15 16:08:00 83.825 kg [facility] BMI 2024-03-15 16:08:00 28.94 kg/m2 [facility] Systolic blood pressure 2024-03-08 19:14:00 130 mm[Hg] General acute hospital Diastolic blood pressure 2024-03-08 19:14:00 81 mm[Hg] General acute hospital Heart rate 2024-03-08 19:14:00 84 /min [facility] Body temperature 2024-03-08 19:14:00 36.72 Lucie [facility] Respiratory rate 2024-03-08 19:14:00 18 /min [facility] Body height 2024-03-08 19:14:00 170.2 cm [facility] Body weight 2024-03-08 19:14:00 81.647 kg [facility] BMI 2024-03-08 19:14:00 28.19 kg/m2 [facility] Systolic blood pressure 2024-03-01 19:22:00 119 mm[Hg] General acute hospital Diastolic blood pressure 2024-03-01 19:22:00 75 mm[Hg] General acute hospital Heart rate 2024-03-01 19:11:00 109 /min [facility] [place] Body height 2024-03-01 19:11:00 170.2 cm [facility] Body weight 2024-03-01 19:11:00 80.65 kg [facility] BMI 2024-03-01 19:11:00 27.85 kg/m2 [facility] Systolic blood pressure 2024-02-23 16:34:00 122 mm[Hg] [facility] Diastolic blood pressure 2024-02-23 16:34:00 82 mm[Hg] [facility] Heart rate 2024-02-23 16:34:00 84 /min [facility] Body height 2024-02-23 16:34:00 170.2 cm [facility] Body weight 2024-02-23 16:34:00 80.377 kg [facility] [place] BMI 2024-02-23 16:34:00 27.75 kg/m2 [facility] Systolic blood pressure 2024-02-08 19:37:00 125 mm[Hg] [facility] Diastolic blood pressure 2024-02-08 19:37:00 78 mm[Hg] [facility] Heart rate 2024-02-08 19:37:00 108 /min [facility] [place] Body height 2024-02-08 19:37:00 170.2 cm [facility] [place] Body weight 2024-02-08 19:37:00 78.563 kg [facility] BMI 2024-02-08 19:37:00 27.13 kg/m2 [facility] Systolic blood pressure 2024-01-25 19:52:00 125 mm[Hg] [facility] Diastolic blood pressure 2024-01-25 19:52:00 85 mm[Hg] [facility] Heart rate 2024-01-25 19:52:00 106 /min [facility] Body height 2024-01-25 19:52:00 170.2 cm [facility] [place] Body weight 2024-01-25 19:52:00 76.295 kg [facility] [place] [facility] BMI 2024-01-25 19:52:00 26.34 kg/m2 [facility] Systolic blood pressure 2022-06-23 14:56:00 121 mm[Hg] General acute hospital Diastolic blood pressure 2022-06-23 14:56:00 86 mm[Hg] General acute hospital Heart rate 2022-06-23 14:56:00 87 /min [facility] Respiratory rate 2022-06-23 14:56:00 18 /min [facility] Body height 2022-06-23 14:56:00 170.2 cm [facility] Body weight 2022-06-23 14:56:00 60.782 kg [facility] BMI 2022-06-23 14:56:00 20.99 kg/m2 [facility] Oxygen saturation in Arterial blood by Pulse oximetry 2022-06-23 14:56:00 100 /min [facility] acute hospital Procedures Procedure Date / Time Performed Performing Clinician Source CBC WITH DIFF 2024-03-17 09:08:00 Laura Hunt [facility] SGOT (ASPARTATE AMINO TRANSFER) 2024-03-16 19:57:00 Laura Hunt [facility] CREATININE 2024-03-16 19:57:00 Laura Hunt [facility] ALANINE AMINO TRANSFERASE(SGPT 2024-03-16 19:57:00 Laura Hunt [facility] LACTATE DEHYDROGENASE 2024-03-16 19:57:00 Laura Hunt [facility] URIC ACID 2024-03-16 19:57:00 Laura Hunt [facility] URINALYSIS 2024-03-16 19:57:00 Laura Hunt [facility] PROTEIN CREAT RATIO URINE RANDOM 2024-03-16 19:57:00 Laura Hunt [facility] CENTRAL NEURAXIAL BLOCK 2024-03-16 15:29:00 Madison Sigala [facility] HB ABO GROUPING 2024-03-16 06:00:00 Laura Hunt [facility] RHO (D) IMMUNE GLOBULIN 2024-03-16 06:00:00 Laura Hunt [facility] CBC WITH DIFF 2024-03-15 16:58:00 HuntLaura [facility] POCT URINALYSIS W/O SPECIFIC GRAVITY 2024-03-15 00:00:00 Laura Hunt [facility] POCT URINALYSIS W/O SPECIFIC GRAVITY 2024-03-08 00:00:00 HuntLaura [facility] POCT URINALYSIS W/O SPECIFIC GRAVITY 2024-03-01 00:00:00 HuntLaura [facility] >14 WEEKS US LIMITED 2024-02-23 17:17:25 Laura Hunt [facility] CBC WITH DIFF 2024-02-23 16:58:00 Laura Hunt [facility] POCT URINALYSIS W/O SPECIFIC GRAVITY 2024-02-23 00:00:00 HuntLaura [facility] POCT URINALYSIS W/O SPECIFIC GRAVITY 2024-02-08 00:00:00 HuntLaura [facility] SECOND AND THIRD TRIMESTER ULTRASOUND 2024-02-04 15:29:24 Laura Hunt [facility] ASSIGNMENT OF BENEFITS 2024-01-25 18:54:46 Docto r Unassigned, [place] [facility] POCT URINALYSIS W/O SPECIFIC GRAVITY 2024-01-25 00:00:00 Laura Hunt [facility] RAPID RESPONSE TEAM DOCUMENTATION 2024-01-13 06:01:00 Doctor Unassigned, [place] [facility] Encounters Start Date/Time End Date/Time Encounter Type Admission Type Attending Clinicians Care Facility Care Department Encounter ID Source 2024-12-06 12:20:00 2024-12-06 13:23:30 Outpatient R JONO UNDERWOOD [facility] [id number] [facility] 2024-12-06 12:20:00 2024-12-06 13:23:30 Urgent Care Jono Underwood Unknown, Attending [facility] [id number] [facility] 2024-08-02 13:30:00 2024-08-02 13:45:00 Automatic Grinder Operator Visit 2, Adc Lab Laura Hunt 2, [facility] [id number] [facility] 2024-08-02 13:00:00 2024-08-02 13:26:34 Outpatient R LAURA HUNT VIEN [facility] [id number] [facility] 2024-08-02 13:00:00 2024-08-02 13:26:34 Office Visit Laura Hunt [facility] BUILD[facility] [id number] [facility] 2024-06-22 08:15:00 2024-06-22 08:15:00 Outpatient R LAURA HUNT VIEN [facility] [id number] [facility] 2024-05-22 19:40:00 2024-05-22 20:32:34 Outpatient R KAMINI CONWAY [facility] [id number] [facility] 2024-05-22 19:40:00 2024-05-22 20:00:00 Urgent Care Kamini Conway Unknown, Attending [facility] [id number] [facility] 2024-04-20 13:15:00 2024-04-20 13:27:53 Outpatient R LAURA HUNT [facility] [id number] [facility] 2024-04-20 13:15:00 2024-04-20 13:27:53 [facility] [id number] [facility] 2024-03-20 10:30:00 2024-03-20 11:15:29 Outpatient R LAURA HUNT [facility] [id number] [facility] 2024-03-20 10:30:00 2024-03-20 11:15:29 Nurse Visit Nurse, [facility] Laura Hunt [facility] [id number] [facility] 2024-03-16 00:26:00 2024-03-17 18:20:00 Inpatient P LAURA HUNT RUST DASHA [id number] [facility] 2024-03-16 00:26:00 2024-03-17 18:20:00 Hospital Encounter Laura Hunt [facility] [id number] 4.2.7.2.686 [id number] [facility] 2024-03-16 00:26:00 2024-03-17 18:20:00 Inpatient P LAURA HUNT RUST DASHA [id number] [facility] 2024-03-16 10:01:00 2024-03-16 18:43:00 Anesthesia Event Live Sigala Stacey [facility] 1.2840.114 350.1.13.10 4.2.7.2.686 [id number] [facility] 2024-03-15 00:00:00 2024-03-15 12:11:28 Telephone Laura Hunt [facility] BUILD[facility] 1.2840.114 350.1.13.10 4.2.7.2.686 [id number] [facility] 2024-03-15 11:30:00 2024-03-15 11:45:00 Automatic Grinder Operator Visit Pob, Adc Lab Main Laura Hunt [facility] 1.2.840.114 350.1.13.10 4.2.7.2.686 [id number] [facility] 2024-03-15 11:00:00 2024-03-15 11:25:49 Outpatient R LAURA HUNT [facility] [id number] [facility] 2024-03-15 11:00:00 2024-03-15 11:25:49 Routine Visit Laura Hunt [facility] 1.2.840.114 350.1.13.10 4.2.7.2.686 [id number] [facility] 2024-03-08 14:15:00 2024-03-08 14:46:17 Outpatient R LAURA HUNT [facility] [id number] [facility] 2024-03-08 14:15:00 2024-03-08 14:46:17 Routine Visit Laura Hunt [facility] 1.2.840.114 350.1.13.10 4.2.7.2.686 [id number] [facility] 2024-03-08 14:15:00 2024-03-08 14:46:17 Outpatient R LAURA HUNT [facility] [id number] [facility] 2024-03-01 14:15:00 2024-03-01 14:22:23 Outpatient R LAURA HUNT [facility] [id number] [facility] 2024-03-01 14:15:00 2024-03-01 14:22:23 Routine Visit Laura Hunt [facility] 1.2.840.114 350.1.13.10 4.2.7.2.686 [id number] [facility] 2024-02-23 11:45:00 2024-02-23 12:57:48 Automatic Grinder Operator Visit 2, Adc Lab [facility] 1.2.840.114 350.1.13.10 4.2.7.2.686 [id number] [facility] 2024-02-23 11:15:00 2024-02-23 11:56:21 Outpatient R LAURA HUNT [facility] [id number] [facility] 2024-02-23 11:15:00 2024-02-23 11:56:21 Routine Visit [facility] 1.2840.114 350.1.13.10 4.2.7.2.686 [id number] [facility] 2024-02-08 14:30:00 2024-02-08 14:45:00 Routine Visit Laura Hunt [facility] 1.2840.114 350.1.13.10 4.2.7.2.686 [id number] [facility] 2024-02-08 14:30:00 2024-02-08 14:30:00 Outpatient R LAURA HUNT [facility] [id number] [facility] 2024-02-04 08:00:00 2024-02-04 09:09:55 Outpatient P STEPHANIE LIU [facility] [id number] [facility] 2024-02-04 08:00:00 2024-02-04 09:09:55 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, Dale-Stephanie Lorenz [facility] [employer] 1.2840.114 350.1.13.10 4.2.7.2.686 [id number] [facility] 2024-01-25 14:00:00 2024-01-25 15:20:46 Outpatient R LAURA HUNT [facility] [id number] [facility] 2024-01-25 14:00:00 2024-01-25 15:20:46 Initial Visit Laura Hunt [facility] 1..840.114 350.1.13.10 4.2.7.2.686 [id number] [facility] 2024-01-25 00:00:00 2024-01-25 00:00:00 Orders Only Doctor Unassigned, [place] [facility] 1.2.840.114 350.1.13.10 4.2.7.2.686 [id number] [facility] 2024-01-13 11:00:33 2024-01-13 11:00:33 Outpatient S[facility] [id number] Nitish Judy Clark 2024-01-13 00:00:00 2024-01-13 00:00:00 Orders Only Doctor Unassigned, [place] [facility] 1..840.114 350.1.13.10 4.2.7.2.686 [id number] [facility] 2023-12-17 13:33:07 2023-12-17 13:33:07 Outpatient SFA [facility] [id number] Nitish Judy Clark 2023-12-16 11:02:14 2023-12-16 11:02:14 Outpatient SFA JODEE [id number] Nitish Judy Clark 2023-11-16 11:20:07 2023-11-16 11:20:07 Outpatient SFA SFA [id number] Nitish Judy Clark 2023-11-04 08:40:25 2023-11-04 08:40:25 Outpatient SFA SFA [id number] Nitish Judy Clark 2023-10-19 11:29:47 2023-10-19 11:29:47 Outpatient SFA SFA [id number] Nitish Kim Clark 2023-09-23 14:53:48 2023-09-23 14:53:48 Outpatient [place] [id number] Nitish Rodas 2023-09-21 11:19:59 2023-09-21 11:19:59 Outpatient [facility] [id number] Nitish Rodas 2023-09-07 00:00:00 2023-09-07 00:00:00 Outpatient GC_GCBZW_Ka diyala_S PRIV [facility] [id number] [facility] 2023-08-24 15:24:20 2023-08-24 15:24:20 Outpatient [place] [id number] Nitish Rodas 2023-08-23 12:11:17 2023-08-23 12:11:17 Outpatient [facility] [id number] Nitish Rodas 2023-08-11 15:41:27 2023-08-11 15:41:27 Outpatient [place] [id number] Nitish Kim [place] 2023-08-04 14:30:00 2023-08-04 14:30:00 Outpatient R MIRIAN RODRIGUEZ [facility] [id number] [facility] 2022-06-23 09:30:00 2022-06-23 10:34:49 Office Visit Luisito Segal [facility] 1.2.840.114 350.1.13.10 4.2.7.2.686 [id number] [facility] 2022-06-23 09:30:00 2022-06-23 10:34:49 Outpatient R LUISITO SEGAL CHERYAL [facility] [id number] [facility] 2022-06-23 09:30:00 2022-06-23 10:34:49 Outpatient R LUISITO SEGAL CHERYAL [facility] [id number] [facility] 2022-06-23 09:30:00 2022-06-23 10:34:49 Outpatient R LUISITO SEGAL CHERYAL [facility] [id number] [facility] 2022-06-23 09:30:00 2022-06-23 10:34:49 Outpatient R LUISITO SEGAL CHERYAL [facility] [id number] [facility] 2022-06-23 00:00:00 2022-06-23 00:00:00 Orders Only Doctor Unassigned, [place] [facility] 1.2.840.114 350.1.13.10 4.2.7.2.686 [id number] [facility] Results Test Description Test Time Test Comments Results Result Co mments Source [facility] (D) IMMUNE [id number] 23:26:59* Test Item Value Reference Range Interpretation Comme nts RHIG CANDIDATE? (test code = 5188) No- see comment Patient is not a candidate for RhIg- Patient is Rh Positive.Performed at [facility] Blood [address] [place], [place] [id number] Free: [phone] No. [id number] [facility] [id number] 15:29:00 Live Sigala CRNA ? ? 03/16/2024 10:30 AM Central Neuraxial Block Date/Time: 03/16/2024 10:29 AM Performed by: Live Sigala CRNAAuthorized by: Nava Martinez MD ?Patient Location: OBReason for Block:OB request, Patient request, Labor analgesia, Surgical anesthesia and Post-op pain managementStaff: ?Anesthesiologist: Nava Martinez MD ?Resident/RESOURCE ROOM TEACHER: Live Sigala CRNA ?Performed by: resident/RAFYPreanesthetic Checklist: [...] air and catheter ?Guidance with: landmark technique}Epidural/Spinal [place] and/or Catheter: ?Epidural/Spinal Kit: BBraun ?Needle Type: [...] ? Smooth and atraumatic, (+) Local, (+) STFUniBaylor Scott and [facility] FriscoCentral Neuraxial [id number] 15:29:00Live Sigala CRNA ? ? 03/16/2024 10:30 AM Central Neuraxial Block Date/Time: 03/16/2024 10:29 AM Performed by: Live Sigala CRNAAuthorized by: Nava Martniez MD ?Patient Location: OBReason for Block:OB request, Patient request, Labor analgesia, Surgical anesthesia and Post-op pain managementStaff:?Anesthesiologist: Nava Martinez MD ?Resident/RESOURCE ROOM TEACHER: Live Sigala CRNA ?Performed by: resident/RAFYPreanesthetic Checklist: [...] air and catheter ?Guidance with: landmark technique}Epidural/Spinal [place] and/or Catheter: ?Epidural/Spinal Kit: BBraun ?Needle Type: [...] ? Smooth and atraumatic, (+) Local, (+) STFUniBaylor Scott [facility] White [facility] FriscoCentral Neuraxial [id number] 15:29:00Live Sigala CRNA ? ? 03/16/2024 10:30 AM Central Neuraxial Block Date/Time: 03/16/2024 10:29 AM Performed by: Live Sigala CRNAAuthorized by: Nava Martinez MD ?Patient Location: OBReason for Block:OB request, Patient request, Labor analgesia, Surgical anesthesia and Post-op pain managementStaff:?Anesthesiologist: Nava Martinez MD ?Resident/RESOURCE ROOM TEACHER: Live Sigala CRNA ?Performed by: resident/CR NAPreanesthetic [...] air and catheter ?Guidance with: landmark technique}Epidural/Spinal [place] and/or Catheter: ?Epidural/Spinal Kit: BBun ?Needle Type: [...] Smooth and atraumatic, (+) Local, (+) STF [facility] [id number] 15:29:00 Live Sigala CRNA ? ? 03/16/2024 10:30 AM Central Neuraxial Block Date/Time: 03/16/2024 10:29 AM Performed by: Live Sigala CRNAAuthorized by: Nava Martinez MD ?Patient Location: OBReason for Block:OB request, Patient request, Labor analgesia, Surgical anesthesia and Post-op pain managementStaff: ?Anesthesiologist: Nava Martinez MD ?Resident/RESOURCE ROOM TEACHER: Live Sigala CRNA ?Performed by: resident/CRNAPreanesthetic Checklist: patient identified, IV checked, risks and benefits explained, monitors and equipment checked, timeout performed, pre-op evaluation, site marked and anesthesia consentProcedure: ?Type of Neuraxial: Epidural ?Epidural Description: 1st attempt ? Sterility Prep cap, drape, gloves, hand hygiene and mask ? ?Sedation Level no sedation ?Patient Position: sitting ?Prep: Betadine and patient draped ? ?Monitoring: heart rate, continuous pulse ox, heart rate / toco and NIBP ?Location: lumbar (1-5) ?Lumbar: L3-L4 ?Approach: midline ? ?Technique: LOC air and catheter ?Guidance with: landmark technique}Epidural/Spinal [place] and/or Catheter: ?Epidural/Spinal Kit: BBraun ?Needle Type: Tuohy ?Needle Gauge: 17 G ?Needle Length: 3.5 in (8.89 cm) ?Needle Insertion Depth: 5 ?Catheter Type: multiport ? ?Catheter Size: 19 G ? ?Catheter at Skin Depth: 11 ?Number of Attempts: 1 ?Test Dose: lidocaine 1.5% with epinephrine 1-to-200,000 and [...] ? Smooth and atraumatic, (+) Local, (+) STFUniversTexas Vista Medical CenterType and Screen - ONCE [id number] 06:51:00* Test Item Value Reference Range Interpretation Comme nts ABO & RH (test code = 20) O POSITIVE IAT (test code = 1185) Negative [facility] HospitalCbc with [id number] 17:04:24* Test Item Value Reference Range Interpretation [...] 33.9 g/dL 31.6-35.1 RDW-SD (test code = 29234-5) 42.8 fL 39.0-49.9 RDW-CV (test code = 788-0) 13.1 % 12.0-15.5 PLT (test code = 777-3) 190 166-358 MPV (test code = 69163-2) 11.3 fL 9.5-12.9 NRBC/100 WBC (test code = 8064492809) 0.0 0.0-10.0 NRBC x10^3 (test code = 2281136020) See_Comment [Automated me ssage] The system which generated this result transmitted reference range: 10*3/?L. The reference range was not used to interpret this result as normal/abnormal. GRAN MAT (NEUT) % (test code = 770-8) 67.2 % IMM GRAN % (test code = 5380425129) 0.60 % LYMPH % (test code = 736-9) 23.9 % MONO % (test code = 5905-5) 6.6 % EOS % (test code = 713-8) 1.4 % BASO % (test code = 706-2) 0.3 % GRAN MAT x10^3(ANC) (test code = 9837490333) 5.31 10*3/uL 1.88-7.09 IMM GRAN x10^3 (test code = 5925086209) 0.05 10*3/uL 0.00-0.06 LYMPH x10^3 (test code = 731-0) 1.89 10*3/uL 1.32-3.29 MONO x10^3 (test code = 742-7) 0.52 10*3/uL 0.33-0.92 EOS x10^3 (test code = 711-2) 0.11 10*3/uL 0.03-0.39 BASO x10^3 (test code = 704-7) 0.01-0.07 [facility] HospitalPOCT Urinalysis w/o Specific [id number] 16:06:00* Test Item Value Reference Range Interpretation [...] = 3257) n/a Negative - Negati ve [facility] Urinalysis w/o Specific [id number] 19:29:00* Test Item Value Reference Range Interpretation [...] = 3257) n/a Negative - Negati ve [facility] Urinalysis w/o Specific [id number] 19:09:00* Test Item Value Reference Range Interpretation [...] = 3257) n/a Negative - Negati ve [facility] Urinalysis w/o Specific [id number] 19:09:00* Test Item Value Reference Range Interpretation [...] = 3257) n/a Negative - Negati ve [facility] Urinalysis w/o Specific [id number] 16:33:00* Test Item Value Reference Range Interpretation [...] = 3257) n/a Negative - Negati ve [facility] Urinalysis w/o Specific [id number] 19:35:00* Test Item Value Reference Range Interpretation [...] = 3257) n/a Negative - Negati ve [facility] Urinalysis w/o Specific [id number] 20:03:00* Test Item Value Reference Range Interpretation Comme nts POCT PH U (test code = 3254) n/a 5-8 POCT U LEUK EST (test code = 3263) n/a Negative - Negative POCT U NIT (test code = 3262) n/a Negative - Negati ve POCT U PROT (test code = 3259) negative Negative - Negat rekah POCT U GLU (test code = 3256) negative Negative - Negati ve POCT U KETONE (test code = 3258) n/a Negative - Neg ative POCT U BLD (test code = 3257) n/a Negative - Negati ve [facility] History and Physical Notes Date/Time Note Provider [...] weight gain during in third trimester 01/25/2024 Gilbert Hick's contraction 01/25/2024 Incomplete rectal prolapse 06/23/2022 [...] found for: "RUBG" No results found for: "GSOK3LH" No results found for: "CGBS" HGB Date [...] details Laura Hunt MD 03/16/2024 6:[address] [facility] Procedure Notes Date/Time Note Provider Source 2024-03-16 10:29:50 Associated Order(s): Central Neuraxial Block Central Neuraxial Block Date/Time: 03/16/2024 10:29 AM Performed by: Live Sigala CRNA Authorized by: Nava Martinez MD Patient Location: OB Reason for Block: OB request, Patient request, Labor analgesia, Surgical anesthesia and Post-op pain management Staff: Anesthesiologist: Nava Martinez MD Resident/RESOURCE ROOM TEACHER: Live Sigala CRNA Performed by: resident/RESOURCE ROOM TEACHER Preanesthetic Checklist: patient identified, IV checked, risks [...] and catheter Guidance with: landmark technique} Epidural/Spinal [place] and/or Catheter: Epidural/Spinal Kit: Bobby Needle Type: [...] and atraumatic, (+) Local, (+) STF NACR-NURSE DUCT INSTALLER,CERTIFIED REGISTERED NURSE DUCT INSTALLER [facility] 2024-03-16 06:19:54 Procedure(s): INSERT CERVICAL DILATOR Pre-Procedure Diagnose(s): 39 weeks gestation of Post-Procedure Diagnose(s): 39 weeks gestation of Coleman bulb inserted in a sterile manner and inflated with 60 cc of normal saline without complications. Patient tolerated the procedure well. Laura Hunt MD #[id number] 03/16/2024 6:[address] [facility]
[2024-12-09 19:54] LABS: Absolute Lymphocytes (CBC) 0.8 K/uL (0.7-4.9); Absolute Monocytes 0.9 K/uL (0.1-1.3); Absolute Neutrophil 7.9 K/uL (1.8-8.0); Basophils % 0.2 % (0-1.3); Eosinophils % 0.1 % (0-4.4); Hematocrit 44.1 % (36.0-45.0); Hemoglobin 14.6 g/dL (12.0-15.0); Lymphocytes % 8.6 % (15.3-44.8); MCH 29.3 pg (27.0-35.0); MCHC 33.1 g/dL (32.0-36.0); MCV 88.4 fL (80-100); MPV 9.6 fL (7.6-11.3); Monocytes % 9.7 % (3.3-12.3); Neutrophils % 81.4 % (41.7-73.7); Platelets 176 thou/uL (152-406); RBC Red Blood Cell Count 4.99 M/uL (3.86-4.86)
[2024-12-09] MEDS ORDERED: ONDANSETRON 4 MG/2 ML VIAL ONE (20:04)
[2024-12-09] MEDS ORDERED: dexAMETHasone 10 MG/ML VIAL ONE (20:04)
[2024-12-09] MEDS ORDERED: MORPHINE 4 MG/ML SYR ONE (20:05)
[2024-12-09] MEDS ORDERED: NA CHLORIDE 0.9% 1,000 ML ONE (20:05)
[2024-12-09 20:15] LABS: Albumin/Globulin Ratio 0.8 (1.1-1.8); Anion Gap 17.9 mEq/L (5.0-15.0); Bilirubin Total 0.7 mg/dL (0.2-1.0); Globulin 4.8 g/dL (2.3-3.5); Potassium 3.9 mEq/L (3.5-5.1); Protein, Total 8.8 g/dL (6.4-8.2)
[2024-12-09] MEDS ORDERED: KETOROLAC 30 MG/ML INJ ONE (20:40)
[2024-12-09] MEDS ORDERED: CEFTRIAXONE 1000 MG/VIAL ONE (21:14)
--- NOTE | 2024-12-09 21:30 | EDPHYS ---
Physician Documentation [facility] Name: Nan Stoddard Age: 24 yrs Sex: Female : 2000 Arrival Date: 12/09/2024 Time: 19:19 Bed 3 Private MD: ED Physician Dl Armendariz HPI: 12/09 23:23 This 24 yrs old Female presents to ER via Ambulatory with complaints of Sore dr5 Throat, Swollen Glands, Shortness Of Breath. 23:23 The patient presents with sore throat. Onset: The symptoms/episode began/occurred 4 dr5 day(s) ago. Patient is a 24-year-old female with history of hypertension coming in with tonsillitis that was diagnosed 3 days ago. Patient states that the medication has not helped her and she is having difficulty swallowing. Patient is handling secretions well, but reports lidocaine is not helping.. PATIENT SERVICES REP: 21:50 LMP 11/15/2024, unknown dd2 Historical: - Allergies: 19:33 PENICILLINS; cm10 - PMHx: 19:33 Hypertensive disorder; ; cm10 - Immunization history:: Adult Immunizations up to date. - Infectious Disease History:: Denies. - Social history:: Smoking status: unknown. ROS: 23:23 Constitutional: as per hpi dr5 Exam: 23:23 Constitutional: This is a well developed, well nourished patient who is awake, alert, dr5 and in no acute distress. Head/Face: Normocephalic, atraumatic. Eyes: Pupils equal round and reactive to light, extra-ocular motions intact. Lids and lashes normal. Conjunctiva and sclera are non-icteric and not injected. Cornea within normal limits. Periorbital areas with no swelling, redness, or edema. Neck: Trachea midline, no thyromegaly or masses palpated, and no cervical lymphadenopathy. Supple, full range of motion without nuchal rigidity, or vertebral point tenderness. No Meningismus. Chest/axilla: Normal chest wall appearance and motion. Nontender with no deformity. No lesions are appreciated. Cardiovascular: Regular rate and rhythm with a normal S1 and S2. Normal PMI, no JVD. No pulse deficits. Respiratory: Lungs have equal breath sounds bilaterally, clear to auscultation. No rales, rhonchi or wheezes noted. No increased work of breathing, no retractions or nasal flaring. Abdomen/GI: Soft, non-tender, non-distended Back: No spinal tenderness. No costovertebral tenderness. Full range of motion. Skin: Warm, dry with normal turgor. Normal color with no rashes, no lesions, and no evidence of cellulitis. MS/ Extremity: Pulses equal, no cyanosis. Neurovascular intact. Full, normal range of motion. Neuro: Awake and alert, GCS 15, oriented to person, place, time, and situation. Cranial nerves II-XII grossly intact. Motor strength 5/5 in all extremities. Sensory grossly intact. Cerebellar exam normal. Normal gait. 23:23 ENT: External ear(s): are unremarkable, Ear canal(s): are normal, TM's: are normal, Mouth: Posterior pharynx: Airway: normal, Tonsils: enlarged on the right, enlarged on the left, with erythema, with exudate, no ulcerations, Uvula: normal, swelling, that is moderate, erythema, Vital Signs: 19:32 BP 136 / 97; Pulse 145; Resp 22; Temp 100.4(O); Pulse Ox 100% on R/A; Weight 72.57 kg; cm10 Height 5 ft. 7 in. ; Pain 10/10; 20:00 BP 128 / 87; Pulse 112; Resp 16; Pulse Ox 98% on R/A; dd2 21:00 BP 115 / 87; Pulse 98; Resp 16; Temp 99.4(O); Pulse Ox 99% on R/A; dd2 19:32 Body Mass Index 25.06 (72.57 kg, 170.18 cm) cm10 19:32 Pain Scale: Adult cm10 Taylor Coma Score: 20:00 Eye Response: spontaneous(4). Motor Response: obeys commands(6). Verbal Response: dd2 oriented(5). Total: 15. MDM: 19:24 Medical Screening Exam initiated dr5 23:23 Differential diagnosis: Allergic rhinitis, pharyngitis, tonsillitis, upper respiratory dr5 infection. Data reviewed: vital signs, nurses notes. I considered the following discharge prescriptions or medication management in the emergency department Medications were administered in the Emergency Department. See MAR. Care significantly affected by the following chronic conditions: Hypertension. Care significantly affected by the following Social Determinants of Health: Poor access to healthcare and/or lack of insurance, Poor access to transportation, Problems related to employment. Counseling: I had a detailed discussion with the patient and/or guardian regarding the historical points, exam findings, and any diagnostic results supporting the discharge/admit diagnosis, the presence of at least one elevated blood pressure reading (>120/80) during this emergency department visit, the need for outpatient follow up, for definitive care, an ENT specialist, a family practitioner, to return to the emergency department if symptoms worsen or persist or if there are any questions or concerns that arise at home. Medication response: Dexamethasone. Response to treatment: the patient's symptoms have markedly improved after treatment. ED course: Patient reports that she started clarithromycin for 1 day without improvement. Patient is willing to have dexamethasone IV given now and will hold off on breast-feeding. After dexamethasone, patient reports she is feeling much better, speaking in full sentences. Will also add cefpodoxime to regiment and give steroid Dosepak. Recommended patient call Dr. Mallory on Wednesday for further management. All questions answered and patient is feeling which better... 12/09 19:33 Order name: CBC with Diff; Complete Time: 20: dr5 12/09 19:33 Order name: CMP; Complete Time: 20: dr5 12/09 19:33 Order name: Test, Serum; Complete Time: 20:31 dr5 Administered Medications: 20:14 Drug: Dexamethasone IVP 10 mg IVP once; (not to exceed 40 mg) Route: IVP; Site: right dd2 antecubital; 20:31 Follow up: Response: No adverse reaction dd2 20:14 Drug: NS 0.9% IV 1000 ml IV at 1000 ml once; to be given as a bolus over 60 minutes dd2 Route: IV; Rate: 1000 ml; Site: right antecubital; 20:31 Follow up: Response: No adverse reaction dd2 21:14 Follow up: Response: No adverse reaction; IV Status: Completed infusion; IV Intake: dd2 1000ml 20:14 Drug: morphine IVP or IV 4 mg IVP once over 4 mins Route: IVP; Infused Over: 4 mins; dd2 Site: right antecubital; 20:31 Follow up: Response: No adverse reaction dd2 20:14 Drug: Ondansetron IVP 4 mg IVP once; over 2 minutes Route: IVP; Site: right antecubital;dd2 20:30 Follow up: Response: No adverse reaction dd2 20:47 Drug: Ketorolac IVP 15 mg IVP once Route: IVP; Site: right antecubital; dd2 21:02 Follow up: Response: No adverse reaction dd2 21:23 Drug: Rocephin IV 1 grams IV at per protocol once; Given slow IV push per pharmacy dd2 instructions Route: IV; Rate: per protocol; Site: right antecubital; 21:38 Follow up: Response: No adverse reaction; IV Status: Completed infusion; IV Intake: 13uvsi1 Disposition: 12/10 02:36 Co-signature as Attending Physician, Dl Armendariz MD I agree with the assessment sp4 and plan of care. I reviewed the patient's care provided by the Advanced Practice Provider and agree with the diagnosis and treatment plan. Disposition Summary: 12/09/24 21:30 Discharge Ordered Notes: Location: Home dr5 Condition: Stable dr5 Diagnosis - Acute tonsillitis, unspecified dr5 Followup: dr5 - With: Emergency Department - When: As needed - Reason: Worsening of condition Followup: dr5 - With: Private Physician - When: As needed - Reason: Recheck today's complaints, Continuance of care, Re-evaluation by your physician Followup: dr5 - With: Destiny Mallory MD - When: 1 - 2 days - Reason: Recheck today's complaints, Continuance of care, Re-evaluation by your physician Followup: dr5 - With: Floresita Negrete MD - When: 1 - 2 days - Reason: Recheck today's complaints, Continuance of care, Re-evaluation by your physician Followup: dr5 - With: Rojas Ivory MD - When: 1 - 2 days - Reason: Recheck today's complaints, Continuance of care, Re-evaluation by your physician Discharge Instructions: - Discharge Summary Sheet dr5 - Tonsillitis dr5 Forms: - Medication Reconciliation Form dr5 - Antibiotic Education dr5 - Patient Portal Instructions dr5 - Leadership Thank You Letter dr5 Prescriptions: - Medrol (Haim) 4 mg Oral Tablets, Dose Pack - take 1 tablet ORAL route as directed - follow package instructions; 1 packet; dr5 Refills: 0, Product Selection Permitted - cefpodoxime 200 mg Oral tablet - take 1 tablet ORAL route every 12 hours for 7 days with food; 20 tablet; dr5 Refills: 0, Product Selection Permitted Signatures: Dispatcher [employer] EDMS Dl Armendariz MD MD sp4 Cata Strong RN RN cm10 LIANA FINNEGAN RN RN dd2 Sincere Henriquez, HEAD MIXER-C HEAD MIXER-Cdr5 Corrections: (The following items were deleted from the chart) 12/09 20:02 19:33 Neck Angio+CT.RAD.BRZ ordered. EDMS EDMS
--- NOTE | 2024-12-09 21:30 | ER ---
Nurse's Notes [facility] Name: Nan Stoddard Age: 24 yrs Sex: Female : 2000 Arrival Date: 12/09/2024 Time: 19:19 Bed 3 Private MD: Diagnosis: Acute tonsillitis, unspecified Presentation: 12/09 19:32 Chief complaint: Patient states: Diagnosed with tonsillitis 4 days ago and not cm10 improving. pt states that she is having trouble swallowing and increased pain. Pt started on clindamycin and ABX changed due to not improving. Coronavirus screen: Client denies travel out of the [place] in the last 14 days. Ebola Screen: Patient denies travel to an Ebola-affected area in the 21 days before illness onset. Initial Sepsis Screen: Does the patient meet any 2 criteria? RR > 20 per min. HR > 90 bpm. Does the patient have a suspected source of infection? No. Patient's initial sepsis screen is negative. Risk Assessment: Do you want to hurt yourself or someone else? Patient reports no desire to harm self or others. Onset of symptoms was December 09, 2024. 19:32 Method Of Arrival: Ambulatory cm10 19:32 Acuity: DARIEN 3 cm10 Triage Assessment: 19:34 General: Appears uncomfortable, Behavior is crying. Pain: Complains of pain in Throat. cm10 EENT: Throat is reddened has patchy exudate has enlarged tonsils. EENT: Reports pain when swallowing. Neuro: No deficits noted. Level of Consciousness is awake, alert, obeys commands, Oriented to person, place, time, situation, Appropriate for age. Respiratory: No deficits noted. Airway is patent Respiratory effort is even, unlabored, Respiratory pattern is regular, symmetrical. 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 - Infectious Disease History:: Denies. - Social history:: Smoking status: unknown. Screenin:00 [facility] ED Fall Risk Assessment (Adult) History of falling in the last 3 months, dd2 including since admission No falls in past 3 months (0 pts) Confusion or Disorientation No (0 pts) Intoxicated or Sedated No (0 pts) Impaired Gait No (0 pts) Mobility Assist Device Used No (0 pt) Altered Elimination No (0 pt) Score/Fall Risk Level 0 - 2 = Low Risk Oriented to surroundings, Maintained a safe environment, Educated pt \T\ family on fall prevention, incl call for assistance when getting out of bed, Assessed \T\ reinforced patient's understanding of fall precautions, Hourly rounding (assess needs \T\ fall precautionary measures) done. Abuse screen: Denies threats or abuse. Nutritional screening: No deficits noted. Tuberculosis screening: No symptoms or risk factors identified. Assessment: 20:00 General: Appears in no apparent distress. uncomfortable, Behavior is calm, cooperative, dd2 appropriate for age. Pain: Complains of pain in THROAT Pain currently is 10 out of 10 on a pain scale. Quality of pain is described as burning, sharp. Neuro: No deficits noted. Knowles Agitation-Sedation Scale (RASS): 0 - Alert and Calm Level of Consciousness is awake, alert, obeys commands, Oriented to person, place, time, situation, Appropriate for age. Cardiovascular: No deficits noted. Respiratory: Airway is patent Respiratory effort is even, unlabored, Respiratory pattern is regular, symmetrical, Breath sounds are clear bilaterally. Respiratory: Reports shortness of breath at rest on exertion. GI: No deficits noted. No signs and/or symptoms were reported involving the gastrointestinal system. GI: Abdomen is non-distended, Abd is soft and non tender X 4 quads. : No deficits noted. No signs and/or symptoms were reported regarding the genitourinary system. EENT: Throat is reddened has enlarged tonsils bilaterally Reports difficulty swallowing pain in left aspect of posterior pharynx and right aspect of posterior pharynx when swallowing Pain is 10 out of 10 on a pain scale. Derm: No deficits noted. No signs and/or symptoms reported regarding the dermatologic system. Musculoskeletal: No deficits noted. No signs and/or symptoms reported regarding the musculoskeletal system. Circulation, motion, and sensation intact. Range of motion: intact in all extremities. Vital Signs: 19:32 BP 136 / 97; Pulse 145; Resp 22; Temp 100.4(O); Pulse Ox 100% on R/A; Weight 72.57 kg; cm10 Height 5 ft. 7 in. ; Pain 10/10; 20:00 BP 128 / 87; Pulse 112; Resp 16; Pulse Ox 98% on R/A; dd2 21:00 BP 115 / 87; Pulse 98; Resp 16; Temp 99.4(O); Pulse Ox 99% on R/A; dd2 19:32 Body Mass Index 25.06 (72.57 kg, 170.18 cm) cm10 19:32 Pain Scale: Adult cm10 Bryson Coma Score: 20:00 Eye Response: spontaneous(4). Motor Response: obeys commands(6). Verbal Response: dd2 oriented(5). Total: 15. ED Course: 19:21 Patient arrived in ED. [id number] 19:23 Sincere Henriquez [facility]C [facility]. dr5 19:23 Dl Armendariz MD is Attending Physician. dr5 19:33 Triage completed. cm10 19:34 LIANA FINNEGAN, RN is Primary Nurse. dd2 19:34 Arm band placed on right wrist. Patient placed in an exam room, on a stretcher. cm10 19:55 No provider procedures requiring assistance completed. Initial lab(s) drawn, by me, dd2 sent to lab. Inserted saline lock: 20 gauge in right antecubital area, using aseptic technique. Blood collected. Flushed with 10 mL NS. Patient maintains SpO2 saturation greater than 95% on room air. 20:00 Patient has correct armband on for positive identification. Bed in low position. Call dd2 light in reach. Side rails up X 1. Client placed on continuous cardiac and pulse oximetry monitoring. NIBP monitoring applied. Door closed. Noise minimized. Pillow given. PO fluids given. Verbal reassurance given. 21:30 Destiny Mallory MD is Referral Physician. dr5 21:30 Floresita Negrete MD is Referral Physician. dr5 21:30 Rojas Ivory MD is Referral Physician. dr5 21:48 Provided Education on: D/C EDUCATION. dd2 21:48 IV discontinued, intact, bleeding controlled, No redness/swelling at site. Pressure dd2 dressing applied. Administered Medications: 20:14 Drug: Dexamethasone IVP 10 mg IVP once; (not to exceed 40 mg) Route: IVP; Site: right dd2 antecubital; 20:31 Follow up: Response: No adverse reaction dd2 20:14 Drug: NS 0.9% IV 1000 ml IV at 1000 ml once; to be given as a bolus over 60 minutes dd2 Route: IV; Rate: 1000 ml; Site: right antecubital; 20:31 Follow up: Response: No adverse reaction dd2 21:14 Follow up: Response: No adverse reaction; IV Status: Completed infusion; IV Intake: dd2 1000ml 20:14 Drug: morphine IVP or IV 4 mg IVP once over 4 mins Route: IVP; Infused Over: 4 mins; dd2 Site: right antecubital; 20:31 Follow up: Response: No adverse reaction dd2 20:14 Drug: Ondansetron IVP 4 mg IVP once; over 2 minutes Route: IVP; Site: right antecubital;dd2 20:30 Follow up: Response: No adverse reaction dd2 20:47 Drug: Ketorolac IVP 15 mg IVP once Route: IVP; Site: right antecubital; dd2 21:02 Follow up: Response: No adverse reaction dd2 21:23 Drug: Rocephin IV 1 grams IV at per protocol once; Given slow IV push per pharmacy dd2 instructions Route: IV; Rate: per protocol; Site: right antecubital; 21:38 Follow up: Response: No adverse reaction; IV Status: Completed infusion; IV Intake: [id number] Medication: 20:00 VIS not applicable for this client. dd2 Intake: 21:14 IV: 1000ml; Total: 1000ml. dd2 21:38 IV: 10ml; Total: 1010ml. dd2 Outcome: 21:30 Discharge ordered by . dr5 21:48 Discharged to home ambulatory, dd2 21:48 Condition: stable 21:48 Discharge instructions given to patient, Instructed on discharge instructions, follow up and referral plans. medication usage, Demonstrated understanding of instructions, follow-up care, medications, Prescriptions given X 2, 21:51 Patient left the ED. dd2 Signatures: Temi Weinberg Clarissa RN RN cm10 LIANA FINNEGAN RN RN dd2 Sincere Henriquez, CORPORATE PHYSICAL SECURITY SUPERVISOR-C CORPORATE PHYSICAL SECURITY SUPERVISOR-[id number]
[2024-12-09 22:18] VITALS: BP 115/87; TEMP 99.4; O2SAT 99
== END 2024-12-09 21:51 | disposition home or self-care (01) ==
LOC: ER 19:19
DX: J03.90 Acute tonsillitis, unspecified (principal)
CPT/HCPCS: 96361; 85025; 36415; 84703; 80053; 96375; 96374; 99284; J1100; J2405; J7030; J0696